=== PATIENT | male | born 1930 | race Caucasian/White ===

== ENCOUNTER 2016-07-08 15:15 | Inpatient (IN) | payer MEDICARE, OTHER ==
[~2016-07-08] VITALS: Ht 172.7 cm; Wt 63.1 kg
[~2016-07-08 15:15] MED LIST: AMLO5TAB90 PO; BISA10EN RECTAL; CALC500T9 PO; CICL6.6S5 TOPICAL; DONE10TA42 PO; GLPZ5T1 PO; HYDR-4003 PO; IMO2 PO; LACT1CAP67 PO; LISI10TA PO; MAG355OR31 PO; MELA3TAB35 PO; METO25T PO; MOM PO; MULT-1018 PO; NICO4GUM7 PO; PROP10DR5 BOTH_EYES; QUET25TA73 PO; TYL325 PO; WARF5TAB7 PO; WARF7.5T4 PO; WHEA98PO PO; [UNRECOGNIZED DRUG - OTHER] TOPICAL; calms forte PO
[2016-07-08 15:18] VITALS: BP 155/63; PULSE 54; RESP 16; O2SAT 97
[2016-07-08] MEDS ORDERED: HYDROmorphone 0.5 mg/0.5 mL iSecure Syringe IVPUSH PRN (15:40)
[2016-07-08] MEDS ORDERED: Ondansetron 2 mg/mL 2 mL Inj IVPUSH ONE (15:40)
--- NOTE | 2016-07-08 15:41 | ED.REPORT ---
HPI-Hip/Pelvis Prob/Inj Date of Service Jul 08, 2016 ED Provider: Charly Reyez MD This is an 85 year old male with a history of DM type II, CVA, HTN, hyperlipidemia, a-fib on Coumadin, CAD, JULES, and osteoarthritis presenting to the emergency department due to left hip pain that began 3 weeks ago. Pt had a hip CT scheduled today and was found to have L femoral head fracture head and consequently sent to the ED. In the ED, pt reports pain but denies numbness or tingling. He states that he may have fallen in the last few days. Denies any other trauma or injuries. Nursing Notes Stated Complaint: POSS BROKEN HIP Chief Complaint: Extremity Trauma Nursing Notes Reviewed: Yes (SAIC not reconciled - EMR indicates ho warfarin use, not on med list from pat[facility]) Allergies: Coded Allergies: metformin (Verified Allergy, Severe, lactic acidosis, 07/08/16) haloperidol (Verified Allergy, Unknown, 07/08/16) Scheduled Amlodipine (Amlodipine) 5 Mg Tablet 5 MG PO BID Aspirin (Aspirin) 325 Mg Tablet 325 MG PO DAILY Donepezil (Donepezil) 10 Mg Tablet 10 MG PO DAILY Glipizide ER (Glipizide ER) 2.5 Mg Tab.er.24 2.5 MG PO DAILY Ipratropium/Albuterol Sulfate (Iprat-Albut 0.5-3(2.5) mg/3 mL Inhalant Soln) 3 Ml Ampul.neb 3 ML IH TID Lact Cmb2/S.thermophl/Bif Cmb1 (Vsl#3 Packet) 1 Each Packet 1 EACH PO DAILY Lidocaine (Lidoderm) 700 Mg Adh..patch 1 PATCH TP daily,[id number] 12 Lisinopril (Lisinopril) 10 Mg Tablet 10 MG PO DAILY Melatonin/Pyridoxine (Melatonin 3 mg Tablet) 1 Each Tablet 1 EACH PO HS Metoprolol Tartrate (Metoprolol Tartrate) 25 Mg Tablet 25 MG PO TID Mirtazapine (Mirtazapine) 30 Mg Tablet 30 MG PO HS Nicotine (Nicoderm Cq 21 mg/24 hr) 1 Each Patch.td24 1 EACH TD DAILY Scheduled PRN Acetaminophen (Acetaminophen) 325 Mg Tablet 325-650 MG PO Q4H PRN PRN For Pain Bisacodyl (Dulcolax Rectal) 10 Mg Supp.rect 10 MG RC DAILY PRN PRN For Constipation Hydrocodone-Acetaminophen 5-325 mg (Hydrocodone-Acetaminophen 5-325 mg) 1 Each Tablet 1 TABLET PO Q4H PRN PRN For Pain Magnesium Hydroxide (Milk of Magnesia) 400 Mg/5 Ml Oral.susp 30 ML PO DAILY PRN PRN For Constipation Na Phos,M-B/Na Phos,Di-Ba (Fleet Enema) 133 Ml Enema 133 ML RC DAILY PRN PRN For Constipation Sennosides (Senna) 8.6 Mg Tablet 17.2 MG PO HS PRN PRN For Constipation General Time Seen by Provider: 16:34 Chief Complaint Hip injury left Hx Obtained From: Patient Arrived By: Walk-in Onset Occurred: More than a week ago... (3 weeks) Symptom Duration: Since onset Severity: Current: Moderate Pertinent Negative: Pt denies other symptoms Recent Healthcare: No recent hospitalization, Recent doctor visit Similar Sx Previous: No Past Medical History Past Medical History Notes: Recent hospitalization for pneumonia at [facility] Past Medical History 1. Diabetes mellitus, type 2. 2. 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 3. Hypertension. 4. Hyperlipidemia. 5. Intermittent A. fib. 6. Coumadin anticoagulation secondary to A. fib, started in 11/17 7. Coronary artery disease, with history of [place] in 1993 and NSTEMI in 11/17. 8. Acute renal failure in 11/17, resolved. 9. Hypertensive crisis with TIA 04/18. 10. B. cell lymphoma, diagnosed 06/15, finished 4 cycles of Rituxan 11. Obstructive sleep apnea, non-compliant with CPAP. 12. Osteoarthritis, spine. 13. History of psoriasis, previously on Barb. 14. Iron deficiency anemia, chronic. 15. Bladder diverticulum with hematuria, s/p surgical repair. 16. BPH. 17. Vertebral artery stenosis, left. 18. Internal carotid artery stenosis. US 11/17 : 50-75% LICA, 50% NATALEE 19. Colon polyps. History of dementia history to sleep apnea Past Surgical History TURP PEG tube Smoking History Never Smoker Social History Resides at [facility] Alcohol Use: Denies alcohol use Drug Use: Denies drug use Ambulatory Status Independent Review of Systems Constitutional: Denies: Chills, Fever Musculoskeletal: Reports: Joint pain, Denies: Back pain Skin: Denies Bruising Neurologic: Denies: Change LOC, Headache Complete sys rev & neg: except as marked. Physical Exam Initial Vital Signs Vital Signs (First) Date Time Temp Pulse Resp B/P Pulse Ox O2 Delivery O2 Flow Rate FiO2 07/08/16 15:18 36.7 54 16 155/63 97 Room Air Initial VS: Reviewed, Vital signs normal General/Constitutional: Well-developed, Well-nourished Head / Eyes: Atraumatic, Normocephalic, PERRL ENT: Mucous membranes moist, Conjunctiva normal, No scleral icterus Neck: Supple, Non-tender, Full range of motion Respiratory: Breath sounds normal, Clear to auscultation, No respiratory distress Cardiovascular: Regular rate & rhythm, Heart sounds normal, Intact distal pulses Abdomen / GI: Soft, Non-tender, No guarding, No rebound, No distention Upper Extremities: Vascular intact, Neuro intact, No swelling, No tenderness Skin: Warm, Dry, No cyanosis Neurologic: Alert, Oriented, Nonfocal Psychiatric: Mood/affect normal, Behavior normal, Normal thought content Lower Extremity / Pelvis / MS: Neurologic intact, Vascular intact Left Hip: Positive: ROM reduced..., Tenderness present... Interpretation & Diagnostics Interpretation & Diagnostics: IMPRESSION: 1. Persistent small right pleural effusion with right basilar compressive atelectasis or consolidation. 2. Mild pulmonary edema again noted. 3. Left midlung nodular opacity may represent confluence of vascular and bony structures but attention is recommended on followup. Dictated by: Rusty Gil M.D. on 07/08/2016 at 15:54 Approved by: Rusty Gil M.D. on 07/08/2016 at 15:56 CHEST X-RAY IMPRESSION: 1. Preoperative chest is of concern for apparent airspace disease in the left lower lobe associated with small pleural effusion developing since recent prior study. Findings could represent aspiration/pneumonia. Dictated by: Benjamin Alcala M.D. on 07/08/2016 at 16:18 Approved by: Benjamin Alcala M.D. on 07/08/2016 at 16:[address] IMPRESSION: Subacute fracture left femoral neck. Possible left obturator ring fracture, nondisplaced. Note: Findings called to Dr. Mango Murray at 1445 hrs. on 07/08/2016. Patient transferred to the ED by shadi at his request. Dictated by: Benjamin Alcala M.D. on 07/08/2016 at 14:38 Approved by: Benjamin Alcala M.D. on 07/08/2016 at 14:55 Lab Results Interpretation Result Diagram: 07/08/16 1715 07/08/16 1715 Test 07/08/16 16:37 07/08/16 16:46 07/08/16 17:15 Hold Urine Received (Received) Urine Color Yellow (YELLOW) Urine Appearance Clear (CLEAR,HAZY) Urine pH 6.5 (5.0-8.0) Urine Specific [place] 1.020 (1.003-1.035) Urine Protein Negativemg/dL (NEG,TRACE) Urine Glucose (UA) Negativemg/dL (NEGATIVE) Urine Ketones Negativemg/dL (NEGATIVE) Urine Occult Blood Negative (NEGATIVE) Urine Nitrite Negative (NEGATIVE) Urine Bilirubin Negative (NEGATIVE) Urine Urobilinogen Normalmg/dL (NORMAL) Urine Leukocyte Esterase Trace (NEGATIVE) Urine RBC 0-2/hpf (0-2) Urine WBC 6-10/hpf (0-5) Urine Epithelial Cells Few/hpf (NONE-MOD) Urine Crystals Uric acid crystals (NONE Urine Bacteria None/hpf (NONE-FEW) Urine Hyaline Casts None/lpf (NONE) Urine Granular Casts None seen (NONE SEEN) Urine Waxy Casts None seen (NONE SEEN) Urine Red Blood Cell Casts None seen (NONE SEEN) Urine White Blood Cell Casts None seen (NONE SEEN) Urine Mucus None seen (None Seen) Urine Trichomonas None seen (NONE SEEN) Urine Yeast None (NONE SEEN) Urinalysis Comment None Urine Culture Reflexed Indicated White Blood Count 5.4th/mm3 (3.8-10.1) Red Blood Count 4.04mil/mm3 (4.40-5.80) Hemoglobin 11.6g/dL (13.8-17.2) Hematocrit 38.6% (41.0-50.0) Mean Corpuscular Volume 95.5fL (81-100) Mean Corpuscular Hemoglobin 28.7pg (27.0-35.0) Mean Corpuscular Hemoglobin Concent 30.1% (32.0-37.0) Red Cell Distribution Width 17.1% (12.3-15.4) Platelet Count 119bil/L (150-400) Neutrophils (%) (Auto) 43.4% (40-74) Lymphocytes (%) (Auto) 48.3% (14-46) Monocytes (%) (Auto) 5.5% (4-12) Eosinophils (%) (Auto) 2.4% (0-5) Basophils (%) (Auto) 0.4% (0-3) Prothrombin Time 10.9sec (8.1-12.5) Prothromb Time International Ratio 1.02ratio Sodium Level 141mEq/L (134-144) Potassium Level 4.1mEq/L (3.5-5.2) Chloride Level 100mEq/L (97-108) Carbon Dioxide Level 29mmol/L (18-29) Blood Urea Nitrogen 20mg/dL (8-27) Creatinine 0.71mg/dL (0.76-1.27) Estimat Glomerular Filtration Rate 112mL/min (>59) Glucose Level 99mg/dL (60-99) Calcium Level 9.5mg/dL (8.5-10.1) Total Bilirubin 0.3mg/dL (0.0-1.2) Aspartate Amino Transf (AST/SGOT) 16U/L (0-50) Alanine Aminotransferase (ALT/SGPT) 9U/L (0-44) Alkaline Phosphatase 70U/L (25-160) Total Protein 6.9g/dL (6.4-8.4) Albumin 3.5g/dL (3.4-5.0) Lab Results Interpretation: CBC normal CMP normal INR normal Urine sixth 10 white cells, culture pending-doubt UTI Re-Eval/Medical Decision Med Decision/Clinical Course This is an 85-year-old male dementia presents with left hip pain. Apparently the patient had a fall in early June and has had continuous left hip pain ever since, but has been a bleeding with the use of walker. However he has been getting hydrocodone, and this been an inadequate to control his left hip pain that has persisted. So he was set up for a outpatient noncontrast CT scan today from [facility] where he resides for evaluation of that left hip pain. Then last night he had a mild fall as well-and continues to have left hip pain. The patient's a poor historian. Denies striking his head, cannot provide much additional detail. On exam the patient has some soreness with decreased range of motion, but no kay shortening. No other injuries are appreciated on exam. Records indicate he has been on warfarin, family and [facility]cf indicate that that was discontinued a little over a week ago-so is off anticoagulants except aspirin. The CT imaging at today as an outpatient was positive for left hip fracture, so the patient was transferred over. History patient declined an IV or intervention-and we got a phone call from his daughter indicating she did not want anything done dishes interesting potential transfer to [place]. The nurse communicated there was a thought that the family may not be interested in surgical intervention. We waited for the family to arrive. Ultimately the patient did receive an IM dose of pain medicine as he is having some discomfort, and then agreed finally to an IV which was placed. However, when the daughter arrived and I discussed the situation-they were comfortable with being admitted here, I discussed with the orthopedist the imaging was the possibility of nonoperative management understanding of marked decrease in mobility-the family indicates that she is normally up and a monitor and a walker, and therefore like an orthopedic consultation for the possibility of surgery-and in the in the surgery was able to discuss with the family directly over the phone to answer questions. She does be admitted for continued management. He should be nothing by mouth after midnight. The case discussed the hospitalist. Source of Hx: Old records Consultation #1: Referral / Consult Name: Jay Metzger DO Consulted With: Orthopedic Call Returned at: 16:41 Note: Will review imaging Consultation #2: Referral / Consult Name: Jillian Alex MD Call Returned at: 18:29 Air Crew Officer: Accepts admit Differential Diagnosis: Negative: Arthritis, septic, Bite injury, Burn injury, Compartment syndrome, Fx acetabulum, Laceration Counseled Regarding: Diagnosis, Lab results, Need for follow-up, Need for admission Discharge & Departure Impression: Primary Impression: Hip fracture, left Encounter type: initial encounter Fracture type: closed Qualified Code: S72.002A - Fracture of unspecified part of neck of left femur, initial encounter for closed fracture Disposition: ADMITTED TO HOSPITAL Discharge Condition All VS Reviewed: Yes Condition: Stable Referrals: Jaycob Peterson MD (PCP) Scribe Attestation Portions of this note were transcribed by Adryan Marcos. I, Dr. Reyez personally performed the history, physical exam and medical decision-making; I reviewed and confirmed the accuracy of the information in the transcribed note. Signed by: jerry Flynn. 07/08/2016, 23:30. Charly Reyez MD Jul 08, 2016 15:41 ADRYAN MARCOS Jul 08, 2016 15:44
[2016-07-08] MEDS ORDERED: Lidocaine 2% 5 mL Topical Jelly MUC_MEMBRM ONE (15:45)
[2016-07-08] MEDS ORDERED: Lidocaine 2% 6mL Topical Jelly TOPICAL ONE (15:50)
--- NOTE | 2016-07-08 16:22 | DRSVH ---
PROCEDURE: X-RAY CHEST ONE VIEW, PORTABLE ([id number]) INDICATIONS: preop TECHNIQUE: One view of the chest was acquired. COMPARISON: 05/31/2016 FINDINGS: Surgical changes and devices: None. Lungs and pleura: There is a moderate left pleural effusion with overlying atelectasis. Patchy airspa ce disease is present at the left base over the fourth anterior rib. The right lung field is clear. N o pneumothorax. Mediastinum: Mediastinal contours appear normal. Heart size is normal. Atheromatous aorta. Bones and chest wall: No suspicious bony lesions. Overlying soft tissues appear unremarkable. IMPRESSION: 1. Preoperative chest is of concern for apparent airspace disease in the left lower lobe associated w ith small pleural effusion developing since recent prior study. Findings could represent aspiration/p neumonia. Dictated by: Benjamin Alcala M.D. on 07/08/2016 at 16:18 Approved by: Benjamin Alcala M.D. on 07/08/2016 at 16:21
[2016-07-08] MEDS ORDERED: HYDROmorphone 1 mg/mL Inj IM ONE (16:40)
[2016-07-08] MEDS ORDERED: Ondansetron 8 mg ODT Tablet PO ONE (16:40)
[2016-07-08 17:20] LABS: APPEARANCE,URINE CLEAR (CLEAR,HAZY); COLOR,URINE YELLOW (YELLOW); OCCULT BLOOD,URINE NEGATIVE (NEGATIVE); PH,URINE 6.5 (5.0-8.0); UROBILINOGEN,URINE NORMAL (NORMAL)
[2016-07-08 17:27] LABS: BASOPHILS % (AUTO) 0.4 % (0-3); EOSINOPHILS % (AUTO) 2.4 % (0-5); MONOCYTES % (AUTO) 5.5 % (4-12); Mean Corpuscular Hemoglobin 28.7 pg (27.0-35.0); Mean Corpuscular Volume 95.5 fL (81-100); NEUTROPHILS % (AUTO) 43.4 % (40-74); Platelet Count 119 bil/L (150-400)
[2016-07-08 17:46] LABS: INR 1.02 ratio
[2016-07-08] MEDS ORDERED: HYDROmorphone 2 mg/mL Inj IVPUSH PRN (19:00)
[2016-07-08 19:06] VITALS: PULSE 52
[2016-07-08] MEDS ORDERED: METO25TA6 PO (19:11)
[2016-07-08] MEDS ORDERED: MAGN400O4 PO (19:11)
[2016-07-08] MEDS ORDERED: SENN-133 PO (19:11)
[2016-07-08] MEDS ORDERED: MIRT30TA6 PO (19:11)
[2016-07-08] MEDS ORDERED: GLIP2.5T2 PO (19:11)
[2016-07-08] MEDS ORDERED: NA P133E23 RC (19:11)
[2016-07-08] MEDS ORDERED: MELA1TAB11 PO (19:11)
[2016-07-08] MEDS ORDERED: DONE10TA42 PO (19:11)
[2016-07-08] MEDS ORDERED: BISA10SU61 RC (19:11)
[2016-07-08] MEDS ORDERED: AMLO5TAB2 PO (19:11)
[2016-07-08] MEDS ORDERED: ACET325T51 PO (19:11)
[2016-07-08] MEDS ORDERED: [UNRECOGNIZED DRUG - CODE] PO (19:11)
[2016-07-08] MEDS ORDERED: NICO1PAT35 TD (19:11)
[2016-07-08] MEDS ORDERED: ASPI325T32 PO (19:11)
[2016-07-08] MEDS ORDERED: LIDO700A6 TP (19:11)
[2016-07-08] MEDS ORDERED: IPRA3AMP IH (19:11)
[2016-07-08 19:15] VITALS: BP 153/52; PULSE 60; RESP 16; O2SAT 93
[2016-07-08] MEDS: HYDROmorphone 1 mg/mL Inj IVPUSH PRN (19:28)
--- NOTE | 2016-07-08 19:49 | PCM.HPMED ---
Subjective Date of Service Jul 08, 2016 Primary Provider: Admitting Physician: Jillian Alex MD Primary Care Physician: Jaycob Peterson MD Attending Physician: Jillian Alex MD History of Present Illness: 85-year-old malen with history of DM type II, CVA, HTN, hyperlipidemia, a-fib on Coumadin, CAD, JULES, and osteoarthritis p/w hip pain. Pt stated that he fell 3 weeks ago in the bathroom, slipped and fell backwards, since the he started having lt hip pain, but CXR was negative for fracture. Patient fel 2days ago again when his WC gave out when he was trying to sit, fell backward again. denied head trauma, LOC, pain in other body parts. Pt was brought in today for scheduled CT scan. then with positive CT findings with L femoral head fracture head, pt was brought to ED. In ED, VS stable, [id number], tg to 52-54, afebrile, >95% on RA. Received multiple dilaudid, zofran. During the interview in [facility], pt denied pain, looked comfortable, ROS: pt denied fever, chills, n/v/c/d, no PND/orthopnea, Prior to this episode, used to walk 5-6blocks without assistance, didn't experience CP or SOB with movement. pt stated that he had mild heart attack several years ago, but since then, hasn't had any chest pain, currently denied active chest pain, sob. denied leg swelling, wt gain, increase in abdominal girdle. 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 Review of Systems: Pertinent positives as noted in history of present illness. All other systems were reviewed and are negative Allergies Coded Allergies: metformin (Verified Allergy, Severe, lactic acidosis, 07/08/16) haloperidol (Verified Allergy, Unknown, 07/08/16) Home Medications Scheduled Amlodipine (Amlodipine) 5 Mg Tablet 5 MG PO BID Aspirin (Aspirin) 325 Mg Tablet 325 MG PO DAILY Donepezil (Donepezil) 10 Mg Tablet 10 MG PO DAILY Glipizide ER (Glipizide ER) 2.5 Mg Tab.er.24 2.5 MG PO DAILY Ipratropium/Albuterol Sulfate (Iprat-Albut 0.5-3(2.5) mg/3 mL Inhalant Soln) 3 Ml Ampul.neb 3 ML IH TID Lact Cmb2/S.thermophl/Bif Cmb1 (Vsl#3 Packet) 1 Each Packet 1 EACH PO DAILY Lidocaine (Lidoderm) 700 Mg Adh..patch 1 PATCH TP daily,[id number] 12 Lisinopril (Lisinopril) 10 Mg Tablet 10 MG PO DAILY Melatonin/Pyridoxine (Melatonin 3 mg Tablet) 1 Each Tablet 1 EACH PO HS Metoprolol Tartrate (Metoprolol Tartrate) 25 Mg Tablet 25 MG PO TID Mirtazapine (Mirtazapine) 30 Mg Tablet 30 MG PO HS Nicotine (Nicoderm Cq 21 mg/24 hr) 1 Each Patch.td24 1 EACH TD DAILY Scheduled PRN Acetaminophen (Acetaminophen) 325 Mg Tablet 325-650 MG PO Q4H PRN PRN For Pain Bisacodyl (Dulcolax Rectal) 10 Mg Supp.rect 10 MG RC DAILY PRN PRN For Constipation Hydrocodone-Acetaminophen 5-325 mg (Hydrocodone-Acetaminophen 5-325 mg) 1 Each Tablet 1 TABLET PO Q4H PRN PRN For Pain Magnesium Hydroxide (Milk of Magnesia) 400 Mg/5 Ml Oral.susp 30 ML PO DAILY PRN PRN For Constipation Na Phos,M-B/Na Phos,Di-Ba (Fleet Enema) 133 Ml Enema 133 ML RC DAILY PRN PRN For Constipation Sennosides (Senna) 8.6 Mg Tablet 17.2 MG PO HS PRN PRN For Constipation PMH 1. Diabetes mellitus, type 2. 2. 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 3. Hypertension. 4. Hyperlipidemia. 5. Intermittent A. fib. 6. Coumadin anticoagulation secondary to A. fib, started in 11/17 7. Coronary artery disease, with history of [place] in 1993 and NSTEMI in 11/17. 8. Acute renal failure in 11/17, resolved. 9. Hypertensive crisis with TIA 04/18. 10. B. cell lymphoma, diagnosed 06/15, finished 4 cycles of Rituxan 11. Obstructive sleep apnea, non-compliant with CPAP. 12. Osteoarthritis, spine. 13. History of psoriasis, previously on Barb. 14. Iron deficiency anemia, chronic. 15. Bladder diverticulum with hematuria, s/p surgical repair. 16. BPH. 17. Vertebral artery stenosis, left. 18. Internal carotid artery stenosis. US 11/17 : 50-75% LICA, 50% NATALEE 19. Colon polyps. History of dementia history to sleep apnea Surgical History denied any surgery but "TURP", PEG per the record Social History Hx Alcohol Use: No Hx Substance Use: No Hx Tobacco Use: No Smoking Status: Never Smoker Exam Vital Signs Vital Sign - Last Date Time Temp Pulse Resp B/P Pulse Ox O2 Delivery O2 Flow Rate FiO2 07/08/16 19:06 52 07/08/16 18:53 36.7 16 145/68 97 Room Air Exam NAD, comfortably laying down on the bed no JVD, MMM, no LAD RRR, nl s1, s2 no mrg CTAB, no w,c S,ND,NT,normoactive BS+ warm, no edema, pulses 2/2 able to move toes, sensory intact to dull bilaterally Lab and Diagnostics Result Diagram: 07/08/16171407/08/16 1715 X-Rays, CTs and MRIs ROCEDURE: CT HIP LEFT W/O CONTRAST ([id number]) INDICATIONS: STABBING PAIN TO LEFT HIP TECHNIQUE: Noncontrast 3 mm axial sections acquired through the bony pelvis. Additional 3 mm axial sections acquired through the symptomatic hip joint, with coronal and sagittal reformats. COMPARISON: None. FINDINGS: Image quality: Excellent. Bones: Bones are osteoporotic. There is a subacute left femoral neck fracture with angulation and displacement deformity. There is mild cortical deformity in the medial aspect of the inferior ramus of the left ischium on axial imaging, series 2/image 64, suggesting nondisplaced obturator ring fracture. Soft tissues: Fat filled bilateral inguinal hernias. IMPRESSION: Subacute fracture left femoral neck. Possible left obturator ring fracture, nondisplaced. Note: Findings called to Dr. Mango Murray at 1445 hrs. on 07/08/2016. Patient transferred to the ED by shadi at his request. Dictated by: Benjamin Alcala M.D. on 07/08/2016 at 14:38 Approved by: Benjamin Alcala M.D. on 07/08/2016 at 14:55 Assessment & Plan 85-year-old malen with history of DM type II, CVA, HTN, hyperlipidemia, a-fib on Coumadin, CAD, JULES, and osteoarthritis p/w hip pain. acute, active Lt hip pain s/p fall, POA, CT of hip showed subacute subacute fracture left femoral neck. Possible left obturator ring fracture, nondisplaced. -appreciate orthopedics input surgery vs non-surgery, pt is interested in surgery, seems to have decisional capacity -pain control with dilaudid, -zofran for n/v Coronary artery disease, with history of [place] in 1993 and NSTEMI in 11/17, no active cardiac condition to postpone the surgery, -pre-op assessment-CXR showed mild pulmonary edema, but clinically pt seems euvolemic, maintain oxygenation w/o O2 supplement, no s/s of acute CHF, no active chest pain, EKG showed normal sinus, no high degree blocks. -will get TTE as well as no follow up for long time. However, unlikely require presurgical eval. Afib on coumadin, likely proxysmal, will check INR, hold coumadin today chronic, stable Diabetes mellitus, type 2, trends glc qac, target 140-180 CVA history 11/17 with right temporal and parietal , with residual visual field cut and memory deficits, pt talks slowly but AAOx3, HTN, HLD, will continue home BP meds, remote hx of JULES, Hypertensive crisis, not active B. 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 Osteoarthritis, spine. History of psoriasis, previously on Barb. Iron deficiency anemia, chronic. Bladder diverticulum with hematuria, s/p surgical repair. BPH. Vertebral artery stenosis, left. Internal carotid artery stenosis. US 11/17 : 50-75% LICA, 50% NATALEE Colon polyps. dispo:Patient will be admitted with inpatient status with expectation of inpatient therapy for more than 2 midnights diet:NPO after MN dvt ppx:SCD DNR/DNI, but okay for anesthesia for surgery addendum> patient was on aspirin, not Coumadin so it was held Time spent 35min Jillian Alex MD Jul 08, 2016 19:49
[2016-07-08 20:00] VITALS: PULSE 61
[2016-07-08] MEDS ORDERED: Sodium Biphos-Phos 133 mL Enema RECTAL PRN (20:00)
[2016-07-08] MEDS ORDERED: Magnesium Hydroxide 10 mL Oral Concentration PO PRN (20:15)
[2016-07-08] MEDS: Albuterol-Ipratropium 3 mL Inhalation Solution INHALATION SCH (20:30)
[2016-07-08 22:28] VITALS: BP 128/68; PULSE 44; RESP 16; O2SAT 96
[2016-07-09] VITALS (18 sets, daily range): BP systolic 112–161; BP diastolic 44–77; PULSE 53–88; RESP 12–20; O2SAT 94–100
--- NOTE | 2016-07-09 01:30 | NUR ---
admit pt arrived to [facility] room 1003 via stretcher. he was moved to hospital bed with sliding board. pt placed on tele monitor and FORENSIC STRUCTURAL ENGINEER. pt is A&Ox3 but is forgetful and has trouble recalling past events at times. admit was completed with pt interview and by using medical records from [facility]. pt oriented to call light, and bed controls but seems to have some difficulty remembering want button to push. nurse frequently reminding pt how to call for help and nica bed alarm is on. pt pulse has been down as low as 44 and has been staying below 50 well pt sleeps. pt amlodipine was held for bradycardia. dilaudid being given for pain control and pt denies pain after administration. pt resting comfortably at this time. care continues.
[2016-07-09 05:43] LABS: BASOPHILS % (AUTO) 0.2 % (0-3); EOSINOPHILS % (AUTO) 1.9 % (0-5); MONOCYTES % (AUTO) 5.8 % (4-12); Mean Corpuscular Hemoglobin 29.3 pg (27.0-35.0); Mean Corpuscular Volume 95.2 fL (81-100); NEUTROPHILS % (AUTO) 32.3 % (40-74); Platelet Count 102 bil/L (150-400)
[2016-07-09 06:02] LABS: INR 1.05 ratio
[2016-07-09 06:17] LABS: Magnesium 1.9 mg/dL (1.6-2.6); Phosphorus 4.1 mg/dL (2.5-4.9)
--- NOTE | 2016-07-09 10:58 | PCM.PNMED ---
Subjective Date of Service Jul 09, 2016 Subjective no overnight event pt denied pain, looked comfortable, still interested in surgery, tentatively scheduled at 2pm today bradycardic throughout, Exam Vital Signs Vital Sign - Last Date Time Temp Pulse Resp B/P Pulse Ox O2 Delivery O2 Flow Rate FiO2 07/09/16 10:16 56 07/09/16 08:44 36.7 17 152/77 96 Room Air Intake and Output 07/08/16 07/08/16 07/09/16 Cumulative From/Thru 15:00 23:00 07:00 07/08/16 15:18 - 07/09/16 05:07 Intake Total 350 ml 350 ml Output Total 250 ml 250 ml Balance 100 ml 100 ml Intake Oral 350 ml 350 ml Output Urine Total 250 ml 250 ml # Bowel Movements 0 0 Exam NAD, comfortably laying down on the bed no JVD, MMM, no LAD RRR, nl s1, s2 no mrg CTAB, no w,c S,ND,NT,normoactive BS+ warm, no edema, pulses 2/2 able to move toes, sensory intact to dull bilaterally IVs and Medications Medications Reviewed: Medications were reviewed in detail Lab and Diagnostics Result Diagram: 07/09/163 07/09/16 0443 X-Rays, CTs and MRIs ROCEDURE: CT HIP LEFT W/O CONTRAST (23707) INDICATIONS: STABBING PAIN TO LEFT HIP TECHNIQUE: Noncontrast 3 mm axial sections acquired through the bony pelvis. Additional 3 mm axial sections acquired through the symptomatic hip joint, with coronal and sagittal reformats. COMPARISON: None. FINDINGS: Image quality: Excellent. Bones: Bones are osteoporotic. There is a subacute left femoral neck fracture with angulation and displacement deformity. There is mild cortical deformity in the medial aspect of the inferior ramus of the left ischium on axial imaging, series 2/image 64, suggesting nondisplaced obturator ring fracture. Soft tissues: Fat filled bilateral inguinal hernias. IMPRESSION: Subacute fracture left femoral neck. Possible left obturator ring fracture, nondisplaced. Note: Findings called to Dr. Mango Murray at 1445 hrs. on 07/08/2016. Patient transferred to the ED by shadi at his request. Dictated by: Benjamin Alcala M.D. on 07/08/2016 at 14:38 Approved by: Benjamin Alcala M.D. on 07/08/2016 at 14:55 Assessment & Plan 85-year-old malen with history of DM type II, CVA, HTN, hyperlipidemia, a-fib on Coumadin, CAD, JULES, and osteoarthritis p/w hip pain. acute, active Lt hip pain s/p fall, POA, CT of hip showed subacute subacute fracture left femoral neck. Possible left obturator ring fracture, nondisplaced. -appreciate orthopedics input, tentatively scheduled for surgery today -pain control with dilaudid, -zofran for n/v -post op pain/dvt ppx management per surgery team. Coronary artery disease, with history of [place] in 1993 and NSTEMI in 11/17, no active cardiac condition to postpone the surgery, -pre-op assessment-CXR showed mild pulmonary edema, but clinically pt seems euvolemic, maintain oxygenation w/o O2 supplement, no s/s of acute CHF, no active chest pain, EKG showed normal sinus, no high degree blocks. -await TTE given no follow up for long time. pt remained clinically stable. Afib, likely proxysmal, INR in normal range, pt is not Coumadin, held aspirin. 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 Osteoarthritis, spine. History of psoriasis, previously on Barb. Iron deficiency anemia, chronic. Bladder diverticulum with hematuria, s/p surgical repair. BPH. Vertebral artery stenosis, left. Internal carotid artery stenosis. US 11/17 : 50-75% LICA, 50% NATALEE Colon polyps. dispo:likely 3more days postop diet:NPO now, resume cardiac/diabetic post surgery dvt ppx:SCD DNR/DNI, but okay for anesthesia for surgery Time spent 35min Jillian Alex MD Jul 09, 2016 10:54
[2016-07-09] MEDS: HYDROmorphone 1 mg/mL Inj IVPUSH PRN (11:00)
[2016-07-09] MEDS: Lidocaine Topical 5% Patch TOPICAL SCH (11:01)
[2016-07-09] MEDS: Dextrose 5% 0.45% NaCl 1,000 ML IV SCH ×2 (11:20→23:51)
[2016-07-09] MEDS ORDERED: CeFAZolin Inj 2 GM in IV Premix 1 EACH IV SCH (12:00)
--- NOTE | 2016-07-09 12:04 | NUR ---
Case Management: IMM and Medicare Part D form delivered and explained to patient. Original placed in chart and copy left at bedside. Theresa Vera RN
[2016-07-09] MEDS ORDERED: Phenylephrine/NS 100 mCg/mL 10 mL Syringe IVPUSH ONE (12:25)
[2016-07-09] MEDS ORDERED: Propofol 10,000 mCg/mL 20 mL Inj ONE (12:25)
[2016-07-09] MEDS ORDERED: fentaNYL-PF 50 mCg/mL 2 mL Inj ONE (12:25)
[2016-07-09] MEDS ORDERED: Rocuronium 10 mg/mL 5 mL Inj ONE (12:25)
--- NOTE | 2016-07-09 15:04 | NUR ---
Off Unit Pt off unit to OR at 1500. A&O, IV SL, Pain tolerable, BG 96, Tele made aware that pt off unit. Remains bradycardic at 55s. Report given to January Fuller RN prior to pickup. Call to Heydi HINTON and requested she return to sign consent for anesthesia. Consent signed for surgery. Pt left unit via bed with chart. Addendum: 07/09/16 at 191 by SHELIA BAIN RN received PACU report at ~1830 from EVAN Zuñiga. This report was passed on to Shelbi ayon RN.
--- NOTE | 2016-07-09 15:16 | PCM.HPANE ---
Patient Data Surgeon Admitting Provider:Jillian Alex MD Attending Provider:Jillian Alex MD Primary Care Physician:Jaycob Peterson MD Other Provider: Reason for Visit Hip Fracture HIP FRACTURE Ht/WT & BMI Height (Feet): 5 Height (Inches): 8.00 Weight (Kilograms): 63.100 Body Mass Index 21.08 Allergies Coded Allergies: metformin (Verified Allergy, Severe, lactic acidosis, 07/08/16) haloperidol (Verified Allergy, Unknown, 07/08/16) Past Anesthesia History Anesthesia History: Denies:: Anesthesia Reactions Diabetes History Hx Diabetes?: Yes (on oral meds) Current Bedside Blood Glucose: 105 MRSA MRSA: No Medications Hypertension Medication: No Home Meds Incl Beta Anderson: No Active Scripts Hydrocodone-Acetaminophen 5-325 mg 1 Each Tablet1 Tablet PO Q4H PRN For Pain # 14 TABLET Ref 0 Prov:Ahmet Powell DO 09/16/15 Reported Medications Acetaminophen 325 Mg Yeptqb406-140 Mg PO Q4H PRN For Pain Ref 0 07/08/16 Sennosides (Senna)8.6 Mg Ttpbbj14.2 Mg PO HS PRN For Constipation 07/08/16 Nicotine (Nicoderm Cq 21 mg/24 hr)1 Each Patch.td241 Each TD DAILY #14 PATCH Ref 0 07/08/16 Na Phos,M-B/Na Phos,Di-Ba (Fleet Enema)133 Ml Gknvm963 Ml RC DAILY PRN For Constipation 07/08/16 Bisacodyl (Dulcolax Rectal)10 Mg Supp.rect10 Mg RC DAILY PRN For Constipation 30 Days Ref 0 07/08/16 Magnesium Hydroxide (Milk of Magnesia)400 Mg/5 Ml Oral.susp30 Ml PO DAILY PRN For Constipation 07/08/16 Metoprolol Tartrate 25 Mg Httjnl61 Mg PO TID 30 Days Ref 0 07/08/16 Ipratropium/Albuterol Sulfate (Iprat-Albut 0.5-3(2.5) mg/3 mL Inhalant Soln)3 Ml Ampul.neb3 Ml IH TID Ref 0 07/08/16 Amlodipine 5 Mg Tablet5 Mg PO BID Ref 0 07/08/16 Lact Cmb2/S.thermophl/Bif Cmb1 (Vsl#3 Packet)1 Each Packet1 Each PO DAILY 07/08/16 Mirtazapine 30 Mg Xqswrk44 Mg PO HS Ref 0 07/08/16 Melatonin/Pyridoxine (Melatonin 3 mg Tablet)1 Each Tablet1 Each PO HS 07/08/16 Lidocaine (Lidoderm)700 Mg Adh..patch1 Patch TP daily,wb92olj/off 12 Ref 0 07/08/16 Glipizide ER 2.5 Mg Tab.er.242.5 Mg PO DAILY 07/08/16 Donepezil 10 Mg Iyifcc83 Mg PO DAILY Ref 0 07/08/16 Aspirin 325 Mg Ngojfi566 Mg PO DAILY #1 BOTTLE 07/08/16 Lisinopril 10 Mg Pchqhn92 Mg PO DAILY 30 Days Ref 0 09/16/15 Discontinued Reported Medications [sarna sens 1% lotion] No Conflict Check1 Applic TOPICAL DAILY 09/16/15 Nicotine Polacrilex (Nicorette)4 Mg Gum4 Mg PO PRN PRN For Tobacco Withdrawal Ref 0 09/16/15 Calcium Carbonate (Tums)500 Mg Tab.chew1,000 Mg PO QID PRN For Epigastric Distress 30 Days 09/16/15 Bisacodyl (Bisacodyl Rectal)10 Mg/30 Ml Enema1 Supp RECTAL PRN PRN For Constipation 09/16/15 Mag Hydrox/Al Hydrox/Simeth (Antacid M Liquid)355 Ml Oral.susp10 Ml PO ACHS PRN For Dyspepsia or Heartburn 09/16/15 Propylene Glycol/Peg 400 (Systane Gel Eye Drops)10 Ml Drops.gel1 Gtt BOTH_EYES QID 09/16/15 Quetiapine Fumarate 25 Mg Lqrrzs63 Mg PO HS Ref 0 09/16/15 Lactobacillus Combination No.4 (Probiotic)1 Each Capsule2 Each PO DAILY 09/16/15 Multivitamin (Multi Vitamin Daily)1 Each Tablet1 Each PO DAILY 30 Days Ref 0 09/16/15 Melatonin 3 Mg Tablet3 Mg PO HS 09/16/15 Donepezil 10 Mg Wmmcgz51 Mg PO BID Ref 0 09/16/15 Ciclopirox 6.6 Ml Solution1 Applic TOPICAL HS 09/16/15 [calms forte] No Conflict Check1-2 Tablet PO HS 09/16/15 Wheat Dextrin (Benefiber)1 Each Powd.pack1 Each PO DAILY 09/16/15 Warfarin Sodium 5 Mg Tfxgnk39 Mg PO DIRECTED 30 Days Ref 0 Take once a week on Friday only. 09/16/15 Warfarin Sodium Inactive Drug Do Not Use 7.5 Mg Tablet7.5 Mg PO DAILY FRI/FRI/FRI/FRI/FRI/SAT 03/09/13 Milk Of Magnesia 10 Ml Conc30 Ml PO DAILY NEED FOR COMPLANTS OF CONSTIPATION IF NO BM, CONTACT PHYSICIAN FOR FURTHER ORDERS. 03/09/13 Loperamide-Expunged Drug, Do Not Renew! (Imodium-Expunged Drug, Do Not Renew!)2 Mg Tablet2 Tab PO TAKE 2 TABLETS BY MOUTH AFTER 1ST LOOSE STOOL, THEN 1 TAB WITH EACH SUBSEQUENT LOOSE STOOL TO A MAXIMUM OF 8 TABS/24HRS.IF DIARRHEA IS NOT RESOLVED IN 48HRS, NOTIFY PHYSICAN. 03/09/13 Acetaminphen-Expunged Drug, Do Not Renew! 325 Mg Tablet2 Tab PO Q4 PRN For Pain NEEDED NOT TO EXCEED 3GM\24HR. 03/09/13 Metoprolol Tart-Expunged Drug, Do Not Renew! 25 Mg Nwwuau81 Mg PO BID 03/09/13 AmLODIPine-Expunged Drug, Do Not Renew! 5 Mg Tablet5 Mg PO BID INCREASED DOSE FOR BETTER BLOOD PRESSURE CONTROL. 03/09/13 Discontinued Scripts glipiZIDE-Expunged Drug, Do Not Renew! 5 Mg Tablet2.5 Mg PO BIDAC 30 Days FOR DIABETES/BETTER BLOOD GLUCOSE CONTROL Prov:Martin Ortega DO 03/12/13 History History of ENT Problems?: Yes HEENT History: Positive for:: Cataracts Hx of Heart Problems?: Yes Cardiovascular History: Positive for:: Hypertension Irregular Heartbeat (afib) Hx of Respiratory Problem?: Yes Respiratory History: Positive for:: Pneumonia Hx Neurologic Problems?: Yes Neurological History: Positive for:: CVA (11/17, TIA 04/18, visual feild, spatial and memory impaired) Dementia (post stroke) Hx of GI Problems?: No Hx of Problems?: Yes Other Pertinent History: bladder diverticulum with hematuria, surgically repaired Male Hx: Positive for:: Prostate Problems (BPH) Hx Musculoskeletal Problems?: Yes Musculoskeletal History: Positive for:: Back Injury (osteoarthritis) Hx of Psycho/Social Problems?: No Hx Surgeries?: Yes (bladder, ) Hx Any Other Health Problems?: Yes Other History: Positive for:: Cancer (B cell lymphoma 06/15) Hospitalization (vt) History Blood Transfusions: Positive for:: Accept Blood Products? Denies:: Blood Transfusions (unknown, pt says no but is not sure, memory deficits) Hx Diabetes: Yes (on oral meds)Bedside Blood Glucose: 105 Hx Alcohol Use: NoHx Substance Use: No Smoking Status: Never Smoker Have You Smoked inLast 12 mo: Yes (has nicotine patch on) Stop/Bang Treated for Sleep Apnea?: No (known sleep apnea non compliant with care) Do You Have a CPAP Machine?: No S-Snoring: Do You Snore Loudly: No T-Tired: feel tired, fatigued: Yes O-Obsered: Observed not breath: Yes P-Blood Pressure: treated: Yes B- Body Mass Index > 35 kg/m2: No A- Age over 50: Yes N- Neck Large Circumference: No G- Gender Male: Yes COLE Total Score: 4 COLE Risk Assessment: High Risk, =/>3 Yes COLE Category 2: Yes Risk Assessment Category Category 1A: Patient has history of documented sleep apnea, and HAS NOT received any narcotic, sedative or anesthesia administration during this stay. Category 1B: Patient has history of documented sleep apnea, and HAS received any narcotic , sedative or anesthesia administration during this stay Category 2: Patient has SUSPECTED Obstructive Sleep Apnea, and HAS received any narcotic , sedative or anesthesia administration during this stay. Category 3: Patient has SUSPECTED Obstructive Sleep Apnea and HAS NOT received narcotic, sedative or anesthesia administration during this stay. Category 4: Outpatient in Procedural Areas with known sleep apnea or who screen positive for High Risk via the STOP/BANG questionnaire. Exam Exam Vital Signs Vital Signs Date Time Temp Pulse Resp B/P Pulse Ox O2 Delivery O2 Flow Rate FiO2 07/09/16 11:59 36.6 53 16 147/62 97 Room Air 07/09/16 10:16 56 07/09/16 08:44 36.7 59 17 152/77 96 Room Air General Appearance: Oriented X3 HEENT/AIRWAY: MP 2 Lungs: Normal Air Movement Heart: Regular Rate/Rhythm Meds/Labs/Diagnostics Admission Meds Current Medications Ondansetron HCl (Zofran Inj) 4 mg ONCE ONCE IVPUSH Last administered on t 17:22; Start 07/08/16 at 15:40; Stop 07/08/16 at 15:41; Status DC Lidocaine HCl (Glydo) 6 ml ONCE ONCE TOPICAL Last administered on 07/08/16 18: 32; Start 07/08/16 at 15:50; Stop 07/08/16 at 15:51; Status DC Lidocaine (Lidoderm 5% Patch) 1 patch DAILY TOPICAL Last administered on 11:01; Start 07/09/16 at 08:30 Lisinopril (Zestril) 10 mg DAILY PO Last administered on 07/09/16 11:13; Start 07/09/16 at 08:30 Donepezil HCl (Aricept) 10 mg DAILY PO Last administered on 07/09/16 11:13; Start 07/09/16 at 08:30 Mirtazapine (Remeron) 30 mg HS PO Last administered on 07/08/16 22:21; Start at 21:00 Bedside Blood Glucose: 105 Labs Test 07/08/16 16:37 07/08/16 16:46 07/09/16 04:43 Hold Urine Received (Received) Urine Color Yellow (YELLOW) Urine Appearance Clear (CLEAR,HAZY) Urine pH 6.5 (5.0-8.0) Urine Specific Mineral 1.020 (1.003-1.035) Urine Protein Negativemg/dL (NEG,TRACE) Urine Glucose (UA) Negativemg/dL (NEGATIVE) Urine Ketones Negativemg/dL (NEGATIVE) Urine Occult Blood Negative (NEGATIVE) Urine Nitrite Negative (NEGATIVE) Urine Bilirubin Negative (NEGATIVE) Urine Urobilinogen Normalmg/dL (NORMAL) Urine Leukocyte Esterase Trace (NEGATIVE) Urine RBC 0-2/hpf (0-2) Urine WBC 6-10/hpf (0-5) Urine Epithelial Cells Few/hpf (NONE-MOD) Urine Crystals Uric acid crystals (NONE Urine Bacteria None/hpf (NONE-FEW) Urine Hyaline Casts None/lpf (NONE) Urine Granular Casts None seen (NONE SEEN) Urine Waxy Casts None seen (NONE SEEN) Urine Red Blood Cell Casts None seen (NONE SEEN) Urine White Blood Cell Casts None seen (NONE SEEN) Urine Mucus None seen (None Seen) Urine Trichomonas None seen (NONE SEEN) Urine Yeast None (NONE SEEN) Urinalysis Comment None Urine Culture Reflexed Indicated White Blood Count 4.7th/mm3 (3.8-10.1) Red Blood Count 3.35mil/mm3 (4.40-5.80) Hemoglobin 9.8g/dL (13.8-17.2) Hematocrit 31.9% (41.0-50.0) Mean Corpuscular Volume 95.2fL (81-100) Mean Corpuscular Hemoglobin 29.3pg (27.0-35.0) Mean Corpuscular Hemoglobin Concent 30.7% (32.0-37.0) Red Cell Distribution Width 16.9% (12.3-15.4) Platelet Count 102bil/L (150-400) Neutrophils (%) (Auto) 32.3% (40-74) Lymphocytes (%) (Auto) 59.6% (14-46) Monocytes (%) (Auto) 5.8% (4-12) Eosinophils (%) (Auto) 1.9% (0-5) Basophils (%) (Auto) 0.2% (0-3) Prothrombin Time 11.2sec (8.1-12.5) Prothromb Time International Ratio 1.05ratio Sodium Level 141mEq/L (134-144) Potassium Level 5.1mEq/L (3.5-5.2) Chloride Level 102mEq/L (97-108) Carbon Dioxide Level 24mmol/L (18-29) Blood Urea Nitrogen 18mg/dL (8-27) Creatinine 0.81mg/dL (0.76-1.27) Estimat Glomerular Filtration Rate 96mL/min (>59) Glucose Level 80mg/dL (60-99) Calcium Level 8.8mg/dL (8.5-10.1) Phosphorus Level 4.1mg/dL (2.5-4.9) Magnesium Level 1.9mg/dL (1.6-2.6) Total Bilirubin 0.3mg/dL (0.0-1.2) Aspartate Amino Transf (AST/SGOT) 27U/L (0-50) Alanine Aminotransferase (ALT/SGPT) 8U/L (0-44) Alkaline Phosphatase 52U/L (25-160) Pro-B-Type Natriuretic Peptide 703.1pg/mL (0-486) Total Protein 5.4g/dL (6.4-8.4) Albumin 2.7g/dL (3.4-5.0) Plan Impression Patient chart reviewed, patient interviewed and anesthestic plan with risks, benefits, and alternatives discussed, and informed consent obtained. ASA Physical Status: ASA4 Life Threatening Anesthetic Plan: GA Bene/Risks/Altern/Consents: Yes HP Complete Prior to Induction: Yes Elio Mcintyre MD Jul 09, 2016 15:16
[2016-07-09] MEDS ORDERED: Lactated Ringer's 1,000 ML IV ONE (15:28)
[2016-07-09] MEDS ORDERED: Bupivacaine-MPF 0.5% W/EPI 30 mL Inj INFILTRATE ONE (16:06)
[2016-07-09] MEDS ORDERED: Bupivacaine Liposome 1.3% 20 mL Inj INFILTRATE ONE (16:06)
[2016-07-09] MEDS ORDERED: 0.9% Sodium Chloride 10 mL Inj INFILTRATE ONE (16:06)
[2016-07-09] MEDS ORDERED: Lactated Ringer's 500 ML IV PRN (16:11)
[2016-07-09] MEDS ORDERED: Lactated Ringer's 1,000 ML IV SCH (16:11)
[2016-07-09] MEDS ORDERED: HYDROmorphone 1 mg/mL Inj IVPUSH PRN (16:15)
[2016-07-09] MEDS ORDERED: Phenylephrine 10,000 mCg/mL Inj IVPUSH PRN (16:15)
[2016-07-09] MEDS ORDERED: Labetalol 5 mg/mL 4 mL Inj IV PRN (16:15)
[2016-07-09] MEDS ORDERED: Dexamethasone 4 mg/mL Inj IVPUSH PRN (16:15)
[2016-07-09] MEDS ORDERED: Ondansetron 2 mg/mL 2 mL Inj IVPUSH PRN ×2 (16:15→18:15)
[2016-07-09] MEDS ORDERED: fentaNYL-PF 50 mCg/mL 2 mL Inj IVPUSH PRN (16:15)
[2016-07-09] MEDS ORDERED: EPHEDrine Sulfate 50 mg/mL Inj IVPUSH PRN (16:15)
[2016-07-09] MEDS ORDERED: MetoCLOpramide 5 mg/mL 2 mL Inj IVPUSH PRN (16:15)
--- NOTE | 2016-07-09 16:17 | NUR ---
Social Work-initial assessment: Data:See initial assessment. Pt is a 85 y/o male who was admitted on 07/08/16 for Hip Fx per H&P. Pt's insurance is [employer] and PCP is Jaycob Peterson MD. EMR Reviewed. Pt's readmission score is 3-high risk. SW met with pt to discuss discharge planning, SW role explained and initial assessment complete. Pt is alert and oriented x3. Pt resides at home alone in a single level home with five steps to enter where pt remains independent with basic ADLs. Pt uses a walker at baseline and does not drive. Pt has no HH or SNF history. Pt has not completed DPOA/ advanced directive and is not interested in information. Patient reported that his NOK is his daughter Leslie Sun-dtr [phone]. Pt has no group home care or VA benefits. SW will continue to follow patient to rule out HH. Pt's family to provide transport home at discharge. SW provided phone number and plan on white board in room. SW will continue to follow. Plan: Pt to likely discharge home with HH vs Home no needs. SW will continue to follow. Vargas Strange LMSW, HEIDI Addendum: 07/09/16 at 1622 by VARGAS STRANGE Amended: Links added.
[2016-07-09] MEDS ORDERED: Magnesium Hydroxide 10 mL Oral Concentration PO PRN (18:15)
[2016-07-09] MEDS ORDERED: Polyethylene Glycol (PEG) 17 Gm Powder PO PRN (18:15)
[2016-07-09] MEDS ORDERED: HYDROcodone-APAP 5-325 mg Tablet PO PRN (18:15)
[2016-07-09] MEDS ORDERED: HYDROmorphone 0.5 mg/0.5 mL iSecure Syringe IVPUSH PRN (18:15)
[2016-07-09] MEDS ORDERED: diphenhydrAMINE 25 mg Capsule PO PRN (18:15)
--- NOTE | 2016-07-09 18:18 | CONS ---
[address] [address] CONSULTATION REPORT PATIENT: PAUL LI : 1930 MR#: [id number] ADMIT: 07/08/2016 JOB ID: [id number] DATE OF SERVICE: 07/09/2016 CHIEF COMPLAINT: Left hip pain. HISTORY OF PRESENT ILLNESS: The patient is a 85-year-old male who was recently hospitalized for pneumonia and has had left hip pain for about three weeks. He had a fall on Friday which seemed to worsen his hip pain and had a CT scan performed which demonstrated a femoral neck fracture. He normally ambulates with a walker, but has been having a very difficult time and this been two-person assist recently. He complains of sharp pain in the left hip and groin. PAST MEDICAL HISTORY: Significant for type 2 diabetes, cerebrovascular accident, hypertension, hyperlipidemia, atrial fibrillation and pneumonia. ALLERGIES: 1. METFORMIN. 2. HALOPERIDOL. PHYSICAL EXAMINATION: Blood pressure 147/62, pulse rate 53, respirations 16, temperature 36.6. He is alert and cooperative in some distress secondary to his left hip. Answers questions appropriately. Left hip skin is intact. He has pain with range of motion of the left hip, radiating into the groin. Left lower extremity is shortened and externally rotated. He is able to move his toes. Sensation to foot is intact. His feet are warm, pink and well perfused. He has some limited use in his right upper extremity secondary to CVA. CT scan was reviewed demonstrates a femoral neck fracture. ASSESSMENT: Left femoral neck fracture. PLAN: We discussed treatment options for this and he and his daughter wished to proceed with a left hip hemiarthroplasty. We discussed the risks, benefits, and possible complications of surgery. All questions were answered and they wished to proceed. We also did discuss nonoperative treatment as an option, but they were amenable to surgical treatment in the hopes that he will be more comfortable and be able to regain his ambulatory status as he was walking about 10 steps even recently with the fracture. I will plan for surgery today.
--- NOTE | 2016-07-09 18:32 | PCM.ANEP1 ---
Post Anesthesia Phase 1 PACU Phase 1 Assessment Vital Signs Vital Signs Date Time Temp Pulse Resp B/P Pulse Ox O2 Delivery O2 Flow Rate FiO2 07/09/16 18:20 72 16 117/44 100 Room Air 07/09/16 18:15 69 16 112/71 100 Room Air 07/09/16 18:10 70 16 137/49 100 Simple Mask 8 07/09/16 18:08 36.8 70 16 140/50 100 Simple Mask 8 07/09/16 11:59 36.6 53 16 147/62 97 Room Air Anesthetic Administered: GA Level of Alertness: Awake, talking Pain: No Pain Scale Score: 4 Nausea or Vomiting: No Oxygen Delivery: Room Air Lungs: Normal Air Movement Elio Mcintyre MD Jul 09, 2016 18:32
--- NOTE | 2016-07-09 18:32 | PCM.ANEP2 ---
Post Anesthesia Evaluation ASA/CMS Post Anesthesia VS in Patient's Normal Range?: Yes Resp Stable; Airway Patent?: Yes CV Function & Hydration Stable: Yes Mental Status Recovered?: Yes Pain control Satisfactory?: Yes N/V Control Satisfactory?: Yes Elio Mcintyre MD Jul 09, 2016 18:32
[2016-07-09] MEDS: 0.9% Sodium Chloride 1,000 ML IV SCH (19:29)
[2016-07-09] MEDS: Acetaminophen IV 1,000 MG in IV Premix 1 EACH IV SCH (19:52)
--- NOTE | 2016-07-09 20:02 | DRSVH ---
PROCEDURE: X-RAY PELVIS W/LAT HIP (LT) ([id number]) INDICATIONS: post op TECHNIQUE: AP pelvis and lateral view of the left hip acquired. COMPARISON: [facility], CT, CT HIP LT WO CON, 07/08/2016, 14:02. FINDINGS: Bones: Patient is status post left hip arthroplasty, with hardware components in expected positions. The hip joint appears congruent. The visualized bony structures appear intact. Left total hip art hroplasty with additional cerclage wires are present, establishing virtual anatomic alignment. Soft tissues: Overlying postoperative changes are noted. No suspicious soft tissue densities. IMPRESSION: Virtual anatomic alignment established after fracture fixation with total hip arthroplas ty and cerclage wires involving the proximal femur. Dictated by: Shamar Strauss M.D. on 07/09/2016 at 19:59 Approved by: Shamar Strauss M.D. on 07/09/2016 at 20:00
--- NOTE | 2016-07-09 20:17 | OP ---
[address] [address] OPERATIVE REPORT PATIENT: PAUL LI : 1930 MR#: [id number] ADMIT: 07/08/2016 JOB ID: [id number] DATE OF SURGERY: 07/09/2016 SURGEON: Jay Metzger DO PREOPERATIVE DIAGNOSIS(ES): Left displaced femoral neck fracture. POSTOPERATIVE DIAGNOSIS(ES): Left displaced femoral neck fracture. PROCEDURE: Left hip hemiarthroplasty with proximal femur open reduction and internal fixation with cables. GRAIN PROCESSOR: Pennie Rivas PA-C. ANESTHESIA: LMA general. INDICATIONS: The patient is an 85-year-old male who fell initially several weeks ago, was admitted to the hospital for pneumonia and then had a repeat fall last night and a CT scan was performed showing a displaced femoral neck fracture. We discussed treatment options with the patient and his daughter who wished to proceed with a left hip hemiarthroplasty. We discussed the risks, benefits, and possible complications of surgery. All questions were answered and they wished to proceed. A surgical aide was required for the successful completion of this procedure. PROCEDURE IN DETAIL: The patient was brought to the operating room. He was given a preoperative antibiotic and general anesthetic, placed comfortably into the lateral decubitus position. The left hip was sterilely prepped and draped. An incision was made centered over the greater trochanter in line with the femur. Dissection was carefully carried through the subcutaneous tissue and electrocautery was used for hemostasis. A split was then made in the iliotibial band in line with the skin incision and the Charnley retractor was placed. A split was then made in the gluteus medius between the junction of the anterior 1/3 and posterior 2/3, and Hohmann retractors were placed on either side of the femoral neck. Next, an anterior sleeve of tissue was released off of the proximal femur to a point just distal to the vastus tubercle. A small triangular portion of capsule was resected as well. The femoral neck was quite comminuted but was recut to freshen it up, and the multiple fragments were removed. The femoral head was then removed with a corkscrew and a Rand and the acetabulum was sized, felt to be a size 47. Next, the femur was prepared beginning with a box osteotome. This was broached sequentially up to a size 6 Tri-Lock stem, and we performed a trial, however, it seemed to fit long and I then backed down to the size 5 stem and did some additional broaching and then went back to the 6 which we were able to get it more distal at this point and then we decided to use a Tri Lock size 6 stem. The hip was irrigated and the 6 press-fit stem was inserted. During insertion it was noted that the stem subsided a bit more distally than it had previously, and a crack was noticed in the proximal femur calcar region. I elected to fixate this with cables and passed a total of three cables; one distal to the fracture, one just below the lesser trochanter and one above the lesser in order to stabilize the fracture. These were then tightened and a standard +1.5 head was chosen and impacted into position. The hip was relocated and had excellent range of motion and equal leg lengths. The wound was then copiously irrigated and closed with #5 Ethibond to repair the hip capsule and to repair the gluteus medius. The remainder of the gluteus medius and vastus lateralis was repaired with #1 Surgilon and 0-Vicryl. The iliotibial band was repaired with a running 0-Vicryl and the subcu was closed with 2-0. The skin was closed with a running 3-0 V lock suture. An admixture of Marcaine mixed with saline and Exparel was added as an adjunct local anesthetic. Sterile dressings were applied. Patient tolerated the procedure well. Blood loss was 150 cc. COMPLICATIONS: Proximal femur periprosthetic fracture. POSTOPERATIVE PROTOCOL: Will have the patient remain toe-touch weightbearing on the left lower extremity for a period of six weeks. I would like him to have x-rays at the two week follow-up visit and will defer to Internal Medicine with regard to DVT prophylaxis. Will start the patient on Lovenox, but he could be switched to Coumadin or continued on Lovenox. He does, however, have a low platelet count which could be a contraindication to usage of Lovenox. FRANCISCO J
[2016-07-09] MEDS: Senna-Docusate 8.6-50 mg Tablet PO SCH (20:35)
[2016-07-09] MEDS: Albuterol-Ipratropium 3 mL Inhalation Solution INHALATION SCH (23:36)
[2016-07-09] MEDS: Sodium Chloride LOK Flush 10 mL Syringe IV SCH (23:39)
[2016-07-09] MEDS: CeFAZolin Inj 2,000 MG in Dextrose 5% 50 ML IV SCH (23:51)
[2016-07-10] VITALS (11 sets, daily range): BP systolic 89–118; BP diastolic 45–62; PULSE 62–78; RESP 12–20; O2SAT 90–98
[2016-07-10] MEDS: Acetaminophen IV 1,000 MG in IV Premix 1 EACH IV SCH ×4 (02:06→18:15)
--- NOTE | 2016-07-10 02:22 | NUR ---
Post Op Patient arrived back on unit around 1914 via OSC bed. A&Ox3, answering questions appropriately. Denies pain/discomfort. IV patent and infusing. Abductor pillow in place. Tolerating clears w/o any N/V. Vale noted to be leaking x2, requiring bed change. Vale d/c'd @ 2760. One soft BM this shift. [place] alarm in place for safety.
[2016-07-10] MEDS: HYDROcodone-APAP 5-325 mg Tablet PO PRN ×2 (04:43→08:47)
[2016-07-10] MEDS: 0.9% Sodium Chloride 1,000 ML IV SCH ×3 (05:30→18:58)
--- NOTE | 2016-07-10 06:01 | PCM.PNORTH ---
Subjective Date of Service: Jul 10, 2016 Visit Information: Reason for Visit Hip Fracture Surgery/Surgery Date L TOTAL HIP LAWRENCE ARTHROPLASTY 07/09/16 Post-Op Day # Date of Admission: Jul 08, 2016 at 18:28 Hospital Day # Subjective Found patient sleeping this morning and easily awakened. Complains of discomfort of left hip pain worse than he is ever had but is not agitated and does not appear to be in pain and speaks with a compromise. Patient does follow commands and will answer questions but does appear somnolent. Postop General: No Shortness of Breath, No Chest Pain Pain Management: PO Objective Exam Objective Alert and cooperative in no acute distress Interoperative dressings clean dry and intact Calf and thigh are soft and nontender Toe wiggle and sensation are intact the left lower extremity distally Abduction wedge in place Collazo is absent SCDs in place at right lower extremity Vital Signs and I/O Vital Sign - Last Date Time Temp Pulse Resp B/P Pulse Ox O2 Delivery O2 Flow Rate FiO2 07/10/16 04:49 36.5 62 20 104/59 97 Room Air 07/09/16 23:48 2.00 Intake and Output 07/09/16 07/09/16 07/10/16 Cumulative From/Thru 15:00 23:00 07:00 07/08/16 15:18 - 07/10/16 05:35 Intake Total 900 ml 1129 ml 2379 ml Output Total 502 ml 752 ml Balance 398 ml 1129 ml 1627 ml Intake Oral 350 ml IV Total 900 ml 1129 ml 2029 ml Output Urine Total 352 ml 602 ml Estimated Blood Loss 150 ml 150 ml # Bowel Movements 0 Lab & Micro Results Microbiology 07/08/16 Urine Culture - Preliminary, Resulted No growth to date Result Diagram: 07/09/16 0443 07/09/16 0443 General Appearance: Alert, Cooperative, No Acute Distress Extremities: No Compartment Syndrom Noted, Thigh & Calf Soft/Nontender Postop Sensory Motor: Movement in Toes, Distal Sensation Intact Activity: Activity per PT, Ambulate with PT (touch toe weightbearing on the left lower extremity using front wheeled walker 6 weeks postop.) Catheters: None Assessment & Plan Impression Everette Joseph is a frail-appearing 85-year-old male who is undergone traumatic left hip fracture with left hip hemiarthroplasty with cables performed on [address] Jay Metzger. Patient is alert and communicative and somewhat somnolent at my first contact this morning. Problems: Plan Postop day #1 from left hip fracture with subsequent left hip hemiarthroplasty with cables performed on 07/09/[address] Jay Metzger. Touch toe weightbearing only on the left lower extremity using a front wheeled walker. Continue formal physical therapy for mobility, gait and safety. Continue by mouth pain medication as needed with orientation to avoid IV pain medication if possible. DVT prophylaxis per hospitalist. Orthopedics has started patient on Lovenox but this may be changed at hospitalist discretion. Interoperative dressing will be changed on postop day #2. Collazo is absent. Nursing please fit bilateral SCDs today. Nursing please fit bilateral thigh-high CLAY hose which are ordered today. Follow-up in 2 weeks at [facility] orthopedic clinic with medical provider for suture removal and wound check. AP pelvis and left crosstable lateral hip x -rays on arrival. Follow-up in 6 weeks at [facility] orthopedic clinic with Dr. Jay Metzger with left two-view hip x-rays on arrival. Orthopedics thanks hospitalist service for their help in the medical management of this patient. Anticipate discharge to group home facility by hospitalist service on postop day #3 or when determined to be medically appropriate per hospitalist service. VTE Prophylaxis: Sub-Q Enoxaparin (Lovenox 40 mg subcutaneous daily for DVT prophylaxis), Walker Ridley PA-C Jul 10, 2016 06:01
[2016-07-10 06:04] LABS: BASOPHILS % (AUTO) 0.1 % (0-3); EOSINOPHILS % (AUTO) 0.1 % (0-5); MONOCYTES % (AUTO) 8.3 % (4-12); Mean Corpuscular Hemoglobin 28.9 pg (27.0-35.0); NEUTROPHILS % (AUTO) 61.6 % (40-74); Platelet Count 91 bil/L (150-400)
[2016-07-10 06:43] LABS: Magnesium 1.7 mg/dL (1.6-2.6); Phosphorus 5.2 mg/dL (2.5-4.9)
[2016-07-10] MEDS: Sodium Chloride LOK Flush 10 mL Syringe IV SCH ×3 (08:30→23:30)
[2016-07-10] MEDS: Senna-Docusate 8.6-50 mg Tablet PO SCH ×2 (08:30→19:36)
[2016-07-10] MEDS: Albuterol-Ipratropium 3 mL Inhalation Solution INHALATION SCH ×3 (08:39→19:49)
[2016-07-10] MEDS: Lidocaine Topical 5% Patch TOPICAL SCH (08:47)
--- NOTE | 2016-07-10 09:08 | DRSVH ---
[facility] [address] [place] [address] Echocardiogram Report Name: PAUL LI LStudy Date: 07/09/2016 Height: 68 in Hospital Exam Location: [facility] Weight: 139 lb Gender: Male BSA: 1.8 m2 : 1930 Age: 85 yrs BP: 145/67 m mHg Reason For Study: Pre-surgical evaluation Ordering Physician: HOSPITALIST [facility] Performed By: Evette Marie Referring Physician: Dr. Jaycob Peterson Interpretation Summary The ejection fraction is estimated to be 65-70%. There is mild aortic valve sclerosis. There is trace mitral regurgitation. Procedure: A two-dimensional transthoracic echocardiogram with color flow and Doppler was performed. The study quality was technically adequate. There is no prior echocardiogram noted for this patient. The patient was in normal sinus rhythm during the exam. Left Ventricle: The left ventricle is normal in size. There is normal left ventricular wall thickness. The ejection fraction is estimated to be 65-70%. The E/A ratio is reversed, suggesting impaired early relaxation of the left ventricle or a reduced preload state. Right Ventricle: The right ventricle is normal in size and function. Atria: The left atrial size is normal. Right atrial size is normal. The interatrial septum is intact with no evidence for an atrial septal defect. Mitral Valve: The mitral valve is normal in structure and function. There is trace mitral regurgitation. Aortic Valve: The aortic valve opens well. There is mild aortic valve sclerosis. No aortic regurgitation is present. Tricuspid Valve: The tricuspid valve is normal in structure and function. No tricuspid regurgitation. Pulmonic Valve: The pulmonic valve is not well visualized. There is trace pulmonic regurgitation. Great Vessels: The aortic root is normal size. The dimensions of the ascending aorta are normal. The inferior vena cava was not visualized. Pericardium/ Pleura There is no pericardial effusion. There is no pleural effusion. MMode/2D Measurements & Calculations LVIDd: 3.0 cm LA dimension LVOT diam: 1.9 cm LV baez. diameter/BSA LVIDs: 1.5 cm Ao root diam (cm/m^2): 1.7 FS: 50.9 % LA A2 area IVSd: 0.67 cm Aortic Jxn LVPWd: 0.82 cm LA A4 area asc Aorta Diam LA length Ao Arch Diam (vol): 4.7 cm (Prox Trans): LA vol: 50.5 ml .9 cm LA vol index : 28.8 ml/m2 LV sys. diameter/BSA (cm/m^2): 0.85 Doppler Measurements & Calculations Ao V2 max MV E max edgar MV E/A: 0.64 PA V2 max : 167.7 cm/sec : 61.8 cm/sec Med Peak E' Edgar : 96.0 cm/sec Ao max PG MV A max edgar PA mean PG : 11.3 mmHg : 96.7 cm/sec E/E' med: 10.1 Ao mean PG MV P1/2t: 139.5 msec Lat Peak E' Edgar PA Accel Time : 0.11 sec LVOT Max Edgar E/E' lat: 8.8 : 98.3 cm/sec E/e' average: 9.4 MV A dur: 0.12 sec LAURENCE(I,D): 1.5 cm sev ratio MV dec time MV P1/2t max edgar Ao V2 mean LV V1 max PG : 0.47 sec : 115.2 cm/sec MVA(P1/2t): 1.6 cm2 Ao V2 VTI: 34.7 cm LV V1 VTI LAURENCE(V,D): 1.6 cm2 : 19.4 cm PA V2 mean LAURENCE indexed to BSA : 65.8 cm/sec (cm^2/m^2): 0.86 Electronically signed by: Jake Zamora on Reading Physician:07/09/2016 11:55 AM
--- NOTE | 2016-07-10 09:20 | PCM.PNMED ---
Subjective Date of Service Jul 10, 2016 Subjective Patient complaining of pain on the surgical site, but manageable Denied difficulty breathing cough or phlegm Exam Vital Signs Vital Sign - Last Date Time Temp Pulse Resp B/P Pulse Ox O2 Delivery O2 Flow Rate FiO2 07/10/16 09:11 63 07/10/16 08:57 17 94 Room Air 07/10/16 08:44 36.8 118/62 07/09/16 23:48 2.00 Intake and Output 07/09/16 07/09/16 07/10/16 Cumulative From/Thru 15:00 23:00 07:00 07/08/16 15:18 - 07/10/16 05:35 Intake Total 900 ml 1129 ml 2379 ml Output Total 502 ml 752 ml Balance 398 ml 1129 ml 1627 ml Intake Oral 350 ml IV Total 900 ml 1129 ml 2029 ml Output Urine Total 352 ml 602 ml Estimated Blood Loss 150 ml 150 ml # Bowel Movements 0 Exam NAD, comfortably laying down on the bed no JVD, MMM, no LAD RRR, nl s1, s2 no mrg CTAB, no w,c S,ND,NT,normoactive BS+ warm, no edema, pulses 2/2 bilaterally, moves toes, sensory intact Lt hip, sterilely dressed IVs and Medications Medications Reviewed: Medications were reviewed in detail Lab and Diagnostics Result Diagram: 07/10/16 0535 07/10/16 0535 X-Rays, CTs and MRIs ROCEDURE: CT HIP LEFT W/O CONTRAST (90402) INDICATIONS: STABBING PAIN TO LEFT HIP TECHNIQUE: Noncontrast 3 mm axial sections acquired through the bony pelvis. Additional 3 mm axial sections acquired through the symptomatic hip joint, with coronal and sagittal reformats. COMPARISON: None. FINDINGS: Image quality: Excellent. Bones: Bones are osteoporotic. There is a subacute left femoral neck fracture with angulation and displacement deformity. There is mild cortical deformity in the medial aspect of the inferior ramus of the left ischium on axial imaging, series 2/image 64, suggesting nondisplaced obturator ring fracture. Soft tissues: Fat filled bilateral inguinal hernias. IMPRESSION: Subacute fracture left femoral neck. Possible left obturator ring fracture, nondisplaced. Note: Findings called to Dr. Mango Murray at 1445 hrs. on 07/08/2016. Patient transferred to the ED by shadi at his request. Dictated by: Benjamin Alcala M.D. on 07/08/2016 at 14:38 Approved by: Benjamin Alcala M.D. on 07/08/2016 at 14:55 Assessment & Plan 85-year-old malen with history of DM type II, CVA, HTN, hyperlipidemia, a-fib on Coumadin, CAD, JULES, and osteoarthritis p/w hip pain. acute, active Lt hip pain s/p fall, POA, CT of hip showed subacute subacute fracture left femoral neck. Possible left obturator ring fracture, nondisplaced. underwent surgery L TOTAL HIP LAWRENCE ARTHROPLASTY 07/09/16, no Cx observed. -appreciate orthopedics post management, pain/dvt ppx -pain control with dilaudid, -zofran for n/v -PT Coronary artery disease, with history of ND in 1993 and NSTEMI in 11/17, no active cardiac condition to postpone the surgery, pre-op assessment-CXR showed mild pulmonary edema, but clinically pt seems euvolemic, maintain oxygenation w/ o O2 supplement, no s/s of acute CHF, no active chest pain, EKG showed normal sinus, no high degree blocks. -no periop cardiac event, monitor sx closely. Afib, likely proxysmal, INR in normal range, pt is not Coumadin, held aspirin periop, likely to resume today, defer to ortho. 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 Osteoarthritis, spine. History of psoriasis, previously on Barb. Iron deficiency anemia, chronic. Bladder diverticulum with hematuria, s/p surgical repair. BPH. Vertebral artery stenosis, left. Internal carotid artery stenosis. US 11/17 : 50-75% LICA, 50% NATALEE Colon polyps. dispo:likely 07/12 diet:cardiac/diabetic dvt ppx:SCD DNR/DNI, but okay for anesthesia for surgery VTE Prophylaxis: Sub-Q Enoxaparin (Lovenox 40 mg subcutaneous daily for DVT prophylaxis), SCDs Time spent 35min Jillian Alex MD Jul 10, 2016 09:20
--- NOTE | 2016-07-10 10:56 | NUR ---
Evaluation completed. Please go to "Notes" then click on "Assessments and Notes" (bottom left corner of screen). Then select appropriate discipline tab on top of screen.
[2016-07-10] MEDS: CeFAZolin Inj 2,000 MG in Dextrose 5% 50 ML IV SCH (11:03)
[2016-07-10] MEDS ORDERED: Glucose 40% Oral Gel 15 Gm Tube PO PRN (13:00)
[2016-07-10] MEDS: Dextrose 5% 0.45% NaCl 1,000 ML IV SCH (14:00)
--- NOTE | 2016-07-10 14:25 | NUR ---
Gave access and faxed facesheet to Dee Dee araya MSW
--- NOTE | 2016-07-10 14:43 | NUR ---
Low BP BP this afternoon is running low, pt asymptomatic and hospitalist aware. See VS section for numbers. Afternoon metoprolol dose held, spoke to hospitalist, and we are in agreement. Pt currently resting. Call light w/in reach.
--- NOTE | 2016-07-10 15:34 | NUR ---
Social Work Continued Discharge Planning Data: Pt is on day 2 of hospitalization for hip fracture per H&P. PT is recommending SNF for RN and PT. SW met with pt at bedside to follow up re: SNF choice list. Pt stated [facility] as his preference. UR specialist sent referral info to [facility]. SW will follow up with pt when [facility] responds. PASRR in file. SW will continue to follow. Assessment: Pt who would benefit from SNF. Plan: Pt will likely discharge to SNF. UR specialist sent referral info to [facility]. SW will follow up with pt when [facility] responds. PASRR in file. SW will continue to follow.SW will continue to follow. LADI Nathan
--- NOTE | 2016-07-10 15:57 | NUR ---
Limited evaluation completed. Please go to "Notes" then click on "Assessments and Notes" (bottom left corner of screen). Then select appropriate discipline tab on top of screen.
[2016-07-10] MEDS: Insulin LISPRO 300 Unit/3 mL Inj SUBQ SCH ×2 (17:28→21:39)
--- NOTE | 2016-07-10 17:48 | NUR ---
Nurse Swallow Observation Pt up to a 60degree angle in bed. Dinner was diced up chicken, steamed broccoli, sherbert and milk, pt observed feeding himself, refused 1:1 feed. No coughing observed or s/s of swallowing difficulty while eating. shortly after his last bite he did cough a bit. no gurgling voice or watery eyes.
[2016-07-11] VITALS (8 sets, daily range): BP systolic 87–133; BP diastolic 44–66; PULSE 52–75; RESP 16–18; O2SAT 93–96
--- NOTE | 2016-07-11 02:07 | NUR ---
BP/Activity/Pain HS Norvasc and Metoprolol held. Patient with asymptomatic hypotension on day shift. Hospitalist okayed withholding BP meds @ that time. Blood pressure @ HS unchanged from afternoon reading (102/51), so HS doses held as well. No c/o pain or discomfort. Doesn't reposition self independently in bed, remains on Q2hour turns. [place] alarm in place for safety.
[2016-07-11] MEDS: Dextrose 5% 0.45% NaCl 1,000 ML IV SCH ×2 (02:24→16:40)
[2016-07-11 05:43] LABS: BASOPHILS % (AUTO) 0.2 % (0-3); EOSINOPHILS % (AUTO) 0.8 % (0-5); MONOCYTES % (AUTO) 7.4 % (4-12); Mean Corpuscular Hemoglobin 29.1 pg (27.0-35.0); Mean Corpuscular Volume 95.1 fL (81-100); NEUTROPHILS % (AUTO) 58.2 % (40-74); Platelet Count 86 bil/L (150-400)
--- NOTE | 2016-07-11 06:18 | PCM.PNORTH ---
Subjective Date of Service: Jul 11, 2016 Visit Information: Reason for Visit Hip Fracture Surgery/Surgery Date L TOTAL HIP LAWRENCE ARTHROPLASTY 07/09/16 Post-Op Day # Date of Admission: Jul 08, 2016 at 18:28 Hospital Day # Subjective Found patient sleeping and easily awakened. Responds easily to questions and offers questions of his own regarding his condition and care. Changed patient' s bandages morning and wound was found in good condition. Explained to patient that he would likely discharge to half-way facility when cleared to do so by hospitalist service. Postop General: No Shortness of Breath, No Chest Pain Pain Management: PO Objective Exam Objective Awake and communicative and pleasant. Hemoglobin 7.1, hematocrit 23 Interoperative dressing is clean dry and intact. Dressing is changed his morning and wound is found in good condition with no drainage. Calf and thigh are soft and nontender. Toe wiggle and sensation are intact that left lower extremity distally Collazo is absent Abduction wedge is absent Vital Signs and I/O Vital Sign - Last Date Time Temp Pulse Resp B/P Pulse Ox O2 Delivery O2 Flow Rate FiO2 07/11/16 05:18 36.7 75 18 133/50 93 Room Air 07/09/16 23:48 2.00 Intake and Output 07/10/16 07/10/16 07/11/16 Cumulative From/Thru 14:59 22:59 06:59 07/08/16 15:18 - 07/11/16 05:38 Intake Total 640 ml 1557 ml 972 ml 5548 ml Output Total 305 ml 1057 ml Balance 335 ml 1557 ml 972 ml 4491 ml Intake Oral 640 ml 436 ml 1426 ml IV Total 1121 ml 972 ml 4122 ml Output Urine Total 305 ml 907 ml Estimated Blood Loss 150 ml # Voids 2 2 4 # Bowel Movements 1 1 Lab & Micro Results Laboratory Tests Test 07/11/16 04:47 White Blood Count 6.1th/mm3 (3.8-10.1) Red Blood Count 2.44mil/mm3 (4.40-5.80) Hemoglobin 7.1g/dL (13.8-17.2) Hematocrit 23.2% (41.0-50.0) Mean Corpuscular Volume 95.1fL (81-100) Mean Corpuscular Hemoglobin 29.1pg (27.0-35.0) Mean Corpuscular Hemoglobin Concent 30.6% (32.0-37.0) Red Cell Distribution Width 17.8% (12.3-15.4) Platelet Count 86bil/L (150-400) Neutrophils (%) (Auto) 58.2% (40-74) Lymphocytes (%) (Auto) 33.2% (14-46) Monocytes (%) (Auto) 7.4% (4-12) Eosinophils (%) (Auto) 0.8% (0-5) Basophils (%) (Auto) 0.2% (0-3) Sodium Level 141mEq/L (134-144) Potassium Level 3.8mEq/L (3.5-5.2) Chloride Level 104mEq/L (97-108) Carbon Dioxide Level 25mmol/L (18-29) Blood Urea Nitrogen 29mg/dL (8-27) Creatinine 0.78mg/dL (0.76-1.27) Estimat Glomerular Filtration Rate 101mL/min (>59) Glucose Level 202mg/dL (60-99) Calcium Level 8.0mg/dL (8.5-10.1) Microbiology 07/08/16 Urine Culture - Final, Complete No growth (<1,000 organisms/mL) Result Diagram: 07/11/16 0447 07/10/16 0535 General Appearance: Alert, Oriented X3, Cooperative, No Acute Distress Extremities: No Compartment Syndrom Noted, Thigh & Calf Soft/Nontender Postop Sensory Motor: Distal Motor Intact, Movement in Toes, Distal Sensation Intact Activity: Activity per PT, Ambulate with PT (touch toe weightbearing on the left lower extremity using front wheeled walker 6 weeks postop.) Catheters: None Assessment & Plan Plan Postop day #2 from left hip fracture with subsequent left hip hemiarthroplasty with cables performed on 07/09/[address] Jay Metzger. Hemoglobin 7.1, hematocrit 23. Hospitalist service may consider transfusion if H&H continues to drop. Touch toe weightbearing only on the left lower extremity using a front wheeled walker. Continue formal physical therapy for mobility, gait and safety. Continue by mouth pain medication as needed. DVT prophylaxis per hospitalist. Orthopedics has started patient on Lovenox but this may be changed at hospitalist discretion. Interoperative dressing is changed this morning and wound its found in good condition with no drainage and no focal erythema or swelling. Change dressings when necessary at this time. Collazo is absent. Bilateral SCDs in place. Abduction wedge was DC'd yesterday. Nursing please fit bilateral thigh-high CLAY hose which are ordered 07-10-16. Follow-up in 2 weeks at [facility] orthopedic clinic with medical provider for suture removal and wound check. AP pelvis and left crosstable lateral hip x -rays on arrival. Follow-up in 6 weeks at [facility] orthopedic clinic with Dr. Jay Metzger with left two-view hip x-rays on arrival. Orthopedics thanks hospitalist service for their help in the medical management of this patient. Anticipate discharge to half-way facility by hospitalist service on postop day #3 or when determined to be medically appropriate per hospitalist service. VTE Prophylaxis: Sub-Q Enoxaparin (Lovenox 40 mg subcutaneous daily for DVT prophylaxis), Walker Ridley PA-C Jul 11, 2016 06:18
[2016-07-11] MEDS: Insulin LISPRO 300 Unit/3 mL Inj SUBQ SCH ×4 (08:14→21:19)
[2016-07-11] MEDS ORDERED: Albuterol-Ipratropium 3 mL Inhalation Solution INHALATION PRN (08:30)
--- NOTE | 2016-07-11 09:08 | PCM.PNMED ---
Subjective Date of Service Jul 11, 2016 Subjective pt denied SOB, but noticed mild hypoxia low 90s on v/s denied cough, sputum, mild pain on surgical site but seems to be controlled only with tylenol Exam Vital Signs Vital Sign - Last Date Time Temp Pulse Resp B/P Pulse Ox O2 Delivery O2 Flow Rate FiO2 07/11/16 05:18 36.7 75 18 133/50 93 Room Air 07/09/16 23:48 2.00 Intake and Output 07/10/16 07/10/16 07/11/16 Cumulative From/Thru 15:00 23:00 07:00 07/08/16 15:18 - 07/11/16 06:01 Intake Total 640 ml 1557 ml 1202 ml 5778 ml Output Total 305 ml 435 ml 1492 ml Balance 335 ml 1557 ml 767 ml 4286 ml Intake Oral 640 ml 436 ml 230 ml 1656 ml IV Total 1121 ml 972 ml 4122 ml Output Urine Total 305 ml 435 ml 1342 ml Estimated Blood Loss 150 ml # Voids 2 2 4 # Bowel Movements 1 0 1 Exam NAD, comfortably laying down on the bed no JVD, MMM, no LAD RRR, nl s1, s2 no mrg CTAB, no w,c S,ND,NT,normoactive BS+ warm, no edema, pulses 2/2 bilaterally, moves toes, sensory intact Lt hip, sterilely dressed IVs and Medications Medications Reviewed: Medications were reviewed in detail Lab and Diagnostics Result Diagram: 07/11/1644607/11/16446 X-Rays, CTs and MRIs ROCEDURE: CT HIP LEFT W/O CONTRAST (73747) INDICATIONS: STABBING PAIN TO LEFT HIP TECHNIQUE: Noncontrast 3 mm axial sections acquired through the bony pelvis. Additional 3 mm axial sections acquired through the symptomatic hip joint, with coronal and sagittal reformats. COMPARISON: None. FINDINGS: Image quality: Excellent. Bones: Bones are osteoporotic. There is a subacute left femoral neck fracture with angulation and displacement deformity. There is mild cortical deformity in the medial aspect of the inferior ramus of the left ischium on axial imaging, series 2/image 64, suggesting nondisplaced obturator ring fracture. Soft tissues: Fat filled bilateral inguinal hernias. IMPRESSION: Subacute fracture left femoral neck. Possible left obturator ring fracture, nondisplaced. Note: Findings called to Dr. Mango Murray at 1445 hrs. on 07/08/2016. Patient transferred to the ED by shadi at his request. Dictated by: Benjamin Alcala M.D. on 07/08/2016 at 14:38 Approved by: Benjamin Alcala M.D. on 07/08/2016 at 14:55 Assessment & Plan 85-year-old malen with history of DM type II, CVA, HTN, hyperlipidemia, a-fib on Coumadin, CAD, JULES, and osteoarthritis p/w hip pain. acute, active Lt hip pain s/p fall, POA, CT of hip showed subacute subacute fracture left femoral neck. Possible left obturator ring fracture, nondisplaced. underwent surgery L TOTAL HIP LAWRENCE ARTHROPLASTY 07/09/16, no Cx observed. -appreciate orthopedics post management, pain/dvt ppx -pain control with dilaudid, -zofran for n/v -PT Coronary artery disease, with history of NM in 1993 and NSTEMI in 11/17, no active cardiac condition to postpone the surgery, pre-op assessment-CXR showed mild pulmonary edema, but clinically pt seems euvolemic, maintain oxygenation w/ o O2 supplement, no s/s of acute CHF, no active chest pain, EKG showed normal sinus, no high degree blocks. -no periop cardiac event, monitor sx closely. Afib, likely proxysmal, INR in normal range, pt is not Coumadin, held aspirin periop, likely to resume today, defer to ortho. mild hypoxia likely due to probable post op mild atelectasis, will encourage use Incentive spirometer, techniques reviewed at the bedside. 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 Osteoarthritis, spine. History of psoriasis, previously on Barb. Iron deficiency anemia, chronic. Bladder diverticulum with hematuria, s/p surgical repair. BPH. Vertebral artery stenosis, left. Internal carotid artery stenosis. US 11/17 : 50-75% LICA, 50% NATALEE Colon polyps. dispo:likely 07/12 diet:cardiac/diabetic dvt ppx:SCD DNR/DNI, but okay for anesthesia for surgery VTE Prophylaxis: Sub-Q Enoxaparin (Lovenox 40 mg subcutaneous daily for DVT prophylaxis), SCDs Time spent 35min Jillian Alex MD Jul 11, 2016 09:08
[2016-07-11] MEDS: 0.9% Sodium Chloride 1,000 ML IV SCH ×2 (10:11→17:48)
[2016-07-11] MEDS: Lidocaine Topical 5% Patch TOPICAL SCH (10:22)
[2016-07-11] MEDS: Senna-Docusate 8.6-50 mg Tablet PO SCH ×2 (10:22→19:40)
[2016-07-11] MEDS: Sodium Chloride LOK Flush 10 mL Syringe IV SCH ×2 (10:22→16:30)
--- NOTE | 2016-07-11 11:29 | NUR ---
Social Work: Readiness for Discharge Data: Pt is on day 3 of hospitalization for hip fracture per H&P. Pt is not medically stable, anticipate 1-2 more days. Pt is POD 2. PT is recommending SNF at this time. LAM spoke with Cecily, coleen at [facility] [phone], who is agreeable to accepting pt at discharge with MD Lizama to follow. Paperwork and pASRR in chart. SW will continue to follow. Assessment: Pt who would benefit from SNF. Plan: Pt will discharge to [facility] with MD Lizama to follow. Paperwork and PASRR in chart. SW will continue to follow. LADI Baptiste
--- NOTE | 2016-07-11 11:31 | NUR ---
Tele Rec'd a call from tele monitor at approx 1050. Pt had 6 beats of VTach at approx 1026. Pt receiving bed bath at that time and is currently resting. Hospitalist aware, no new orders at this time.
[2016-07-11 12:39] LABS: MONOCYTES % (AUTO) 6.8 % (4-12); Mean Corpuscular Hemoglobin 30.7 pg (27.0-35.0); Mean Corpuscular Volume 92.4 fL (81-100); NEUTROPHILS % (AUTO) 57.2 % (40-74); Platelet Count 110 bil/L (150-400)
[2016-07-11] MEDS ORDERED: Potassium Chloride 20 mEq/15 mL 15mL Oral Soln PO ONE (13:20)
[2016-07-11] MEDS ORDERED: Magnesium Sulf 2 Gm/50mL Water 2 GM in IV Premix 1 EACH IV ONE ×2 (13:20→14:15)
[2016-07-11] MEDS ORDERED: 0.9% Sodium Chloride 250 ML ONE (14:29)
[2016-07-11] MEDS ORDERED: 0.9% Sodium Chloride 500 ML IV ONE (18:00)
[2016-07-12] VITALS (11 sets, daily range): BP systolic 110–151; BP diastolic 55–74; PULSE 63–86; RESP 14–16; O2SAT 92–97
[2016-07-12] MEDS: Sodium Chloride LOK Flush 10 mL Syringe IV SCH ×3 (00:33→16:23)
--- NOTE | 2016-07-12 04:44 | NUR ---
BP/Activity. NS Bolus hung on day shift completed at beginning of this shift. BP @ that time: 101/52. Held HS cardiac medications. BP upon recheck: 151/74. Patient sleeping all of shift so far. On Q2hour turns. No c/o pain or discomfort.
[2016-07-12] MEDS: Dextrose 5% 0.45% NaCl 1,000 ML IV SCH ×2 (04:56→19:20)
[2016-07-12] MEDS: 0.9% Sodium Chloride 1,000 ML IV SCH ×2 (05:14→16:11)
[2016-07-12 05:26] LABS: BASOPHILS % (AUTO) 0.2 % (0-3); EOSINOPHILS % (AUTO) 4.2 % (0-5); Mean Corpuscular Hemoglobin 29.6 pg (27.0-35.0); Mean Corpuscular Volume 95.8 fL (81-100); NEUTROPHILS % (AUTO) 49.4 % (40-74); Platelet Count 76 bil/L (150-400)
[2016-07-12 05:38] LABS: Magnesium 2.5 mg/dL (1.6-2.6); Phosphorus 2.1 mg/dL (2.5-4.9)
--- NOTE | 2016-07-12 05:41 | NUR ---
Critical Lab Value Critical hemoglobin value of 6.3. Paged Dr. Chauhan and received order to T&C, transfuse one unit PRBC & recheck CBC one hour after transfusion. Addendum: 07/12/16 at 0632 by CELINE THOMPOSN RN T&C & one unit PRBC ordered. Passed on to oncoming shift to order CBC recheck for one hour after completed transfusion.
--- NOTE | 2016-07-12 06:58 | PCM.PNORTH ---
Subjective Date of Service: Jul 12, 2016 Visit Information: Reason for Visit Hip Fracture Surgery/Surgery Date L TOTAL HIP LAWRENCE ARTHROPLASTY 07/09/16 Post-Op Day # Date of Admission: Jul 08, 2016 at 18:28 Hospital Day # Subjective Found patient sleeping this morning and easily awakened. Patient is less responsive this morning than he has been and did not open his eyes during our contact. Patient did communicate and did follow commands regarding moving of his extremities, etc. The patient has no complaints of pain at this time. Postop General: No Complaints, No Shortness of Breath, No Chest Pain Pain Management: PO Objective Exam Objective Awake and responsive with eyes closed. Postoperative dressing is clean dry and intact Calf and thigh are soft and nontender Toe wiggle and sensation are intact at left lower extremity distally Collazo is absent CLAY hose and SCD in place on left lower extremit. SCD only a right lower extremity. Vital Signs and I/O Vital Sign - Last Date Time Temp Pulse Resp B/P Pulse Ox O2 Delivery O2 Flow Rate FiO2 07/12/16 06:21 80 07/12/16 05:09 36.8 16 124/60 94 Room Air 07/09/16 23:48 2.00 Intake and Output 07/11/16 07/11/16 07/12/16 Cumulative From/Thru 15:00 23:00 07:00 07/08/16 15:18 - 07/12/16 06:36 Intake Total 560 ml 769 ml 7107 ml Output Total 1492 ml Balance 560 ml 769 ml 5615 ml Intake Oral 458 ml 250 ml 2364 ml IV Total 102 ml 519 ml 4743 ml Output Urine Total 1342 ml Estimated Blood Loss 150 ml # Voids 2 2 8 # Bowel Movements 2 3 Lab & Micro Results Laboratory Tests Test 07/11/16 12:10 07/12/16 04:43 White Blood Count 8.1th/mm3 (3.8-10.1) 5.5th/mm3 (3.8-10.1) Red Blood Count 2.38mil/mm3 (4.40-5.80) 2.13mil/mm3 (4.40-5.80) Hemoglobin 7.3g/dL (13.8-17.2) 6.3g/dL (13.8-17.2) Hematocrit 22.0% (41.0-50.0) 20.4% (41.0-50.0) Mean Corpuscular Volume 92.4fL (81-100) 95.8fL (81-100) Mean Corpuscular Hemoglobin 30.7pg (27.0-35.0) 29.6pg (27.0-35.0) Mean Corpuscular Hemoglobin Concent 33.2% (32.0-37.0) 30.9% (32.0-37.0) Red Cell Distribution Width 17.8% (12.3-15.4) 17.9% (12.3-15.4) Platelet Count 110bil/L (150-400) 76bil/L (150-400) Neutrophils (%) (Auto) 57.2% (40-74) 49.4% (40-74) Lymphocytes (%) (Auto) 30.4% (14-46) 40.0% (14-46) Monocytes (%) (Auto) 6.8% (4-12) 6.0% (4-12) Eosinophils (%) (Auto) 2.0% (0-5) 4.2% (0-5) Basophils (%) (Auto) 1.0% (0-3) 0.2% (0-3) Band Neutrophils % 0% (1-5) Sodium Level 144mEq/L (134-144) Potassium Level 4.3mEq/L (3.5-5.2) Chloride Level 108mEq/L (97-108) Carbon Dioxide Level 26mmol/L (18-29) Blood Urea Nitrogen 23mg/dL (8-27) Creatinine 0.64mg/dL (0.76-1.27) Estimat Glomerular Filtration Rate 126mL/min (>59) Glucose Level 126mg/dL (60-99) Calcium Level 7.8mg/dL (8.5-10.1) Phosphorus Level 2.1mg/dL (2.5-4.9) Magnesium Level 2.5mg/dL (1.6-2.6) Total Bilirubin 0.3mg/dL (0.0-1.2) Aspartate Amino Transf (AST/SGOT) 17U/L (0-50) Alanine Aminotransferase (ALT/SGPT) 6U/L (0-44) Alkaline Phosphatase 38U/L (25-160) Total Protein 4.1g/dL (6.4-8.4) Albumin 2.2g/dL (3.4-5.0) Microbiology 07/08/16 Urine Culture - Final, Complete No growth (<1,000 organisms/mL) Result Diagram: 07/12/1644207/12/16442 General Appearance: Cooperative, No Acute Distress Extremities: No Compartment Syndrom Noted, Thigh & Calf Soft/Nontender Postop Sensory Motor: Distal Motor Intact, Movement in Toes, Distal Sensation Intact Activity: Activity per PT, Ambulate with PT (touch toe weightbearing on the left lower extremity using front wheeled walker 6 weeks postop.) Catheters: None Assessment & Plan Impression Patient is a 85-year-old gentleman who has suffered a left hip fracture with subsequent left total hip arthroplasty with cables on 07/09/2016. He has been somnolent and poorly participates with physical therapy since his surgery. He is well-positioned and appears comfortable and is responsive but has not initiated conversation. Problems: Plan Postop day #3 from left hip fracture with subsequent left hip hemiarthroplasty with cables performed on 07/09/[address] Jay Metzger. Hemoglobin , hematocrit 20.4. I have spoken directly with Dr. Chauhan from night hospitalist service and discussed transfusion. He will apply 2 units PRBCs today. Touch toe weightbearing only on the left lower extremity using a front wheeled walker. Continue formal physical therapy for mobility, gait and safety. Continue by mouth pain medication as needed. DVT prophylaxis per hospitalist. Orthopedics has started patient on Lovenox but this may be changed at hospitalist discretion. I have spoken with a pharmacist today and discussed the fact the patient remains on Lovenox when he had been on warfarin prior to surgery. Pharmacist has agreed to bring this up in rounds and talk to patient's current hospitalist regarding transition back to his chronic warfarin if this is determined to be the appropriate course by pharmacy and internal medicine. Postoperative dressings clean dry and intact morning. Collazo is absent. Bilateral SCDs in place. CLAY hose on left lower extremity only. Abduction wedge absent Nursing please fit bilateral thigh-high CLAY hose which are ordered 07-10-16. Follow-up in 2 weeks at [facility] orthopedic clinic with mid-level provider for suture removal and wound check. AP pelvis and left crosstable lateral hip x -rays on arrival. Follow-up in 6 weeks at [facility] orthopedic clinic with Dr. Jay Metzger with left two-view hip x-rays on arrival. Orthopedics thanks hospitalist service for their help in the medical management of this patient. Orthopedics will sign off on this patient at this time but as always we will remain available for consultation or treatment regarding orthopedic issues. Anticipate discharge to correction facility by hospitalist service on postop day #3 or when determined to be medically appropriate for discharge per hospitalist service. VTE Prophylaxis: Sub-Q Enoxaparin (Lovenox 40 mg subcutaneous daily for DVT prophylaxis), Ute, CLAY Jacobsen, Walker Rodriguez PA-C Jul 12, 2016 06:58
[2016-07-12] MEDS: Insulin LISPRO 300 Unit/3 mL Inj SUBQ SCH ×4 (07:49→22:00)
[2016-07-12] MEDS: Senna-Docusate 8.6-50 mg Tablet PO SCH ×2 (09:02→21:57)
[2016-07-12] MEDS: Lidocaine Topical 5% Patch TOPICAL SCH (09:03)
--- NOTE | 2016-07-12 10:08 | PCM.PNMED ---
Subjective Date of Service Jul 12, 2016 Subjective BP was running low so BP meds were held, 500cc bolus given responded well, normotensive this AM hgb trending down to 6.2 this AM> no episode of GIB, no signs of hematoma on surgical site. held LMWH this AM, 2units of pRBC ordered Exam Vital Signs Vital Sign - Last Date Time Temp Pulse Resp B/P Pulse Ox O2 Delivery O2 Flow Rate FiO2 07/12/16 06:21 80 07/12/16 05:09 36.8 16 124/60 94 Room Air 07/09/16 23:48 2.00 Intake and Output 07/11/16 07/11/16 07/12/16 Cumulative From/Thru 15:00 23:00 07:00 07/08/16 15:18 - 07/12/16 06:36 Intake Total 560 ml 769 ml 7107 ml Output Total 1492 ml Balance 560 ml 769 ml 5615 ml Intake Oral 458 ml 250 ml 2364 ml IV Total 102 ml 519 ml 4743 ml Output Urine Total 1342 ml Estimated Blood Loss 150 ml # Voids 2 2 8 # Bowel Movements 2 3 Exam NAD, comfortably laying down on the bed no JVD, MMM, no LAD RRR, nl s1, s2 no mrg CTAB, no w,c S,ND,NT,normoactive BS+ warm, no edema, pulses 2/2 bilaterally, moves toes, sensory intact Lt hip, sterilely dressed IVs and Medications Medications Reviewed: Medications were reviewed in detail Lab and Diagnostics Result Diagram: 07/12/1644207/12/16442 X-Rays, CTs and MRIs ROCEDURE: CT HIP LEFT W/O CONTRAST ([id number]) INDICATIONS: STABBING PAIN TO LEFT HIP TECHNIQUE: Noncontrast 3 mm axial sections acquired through the bony pelvis. Additional 3 mm axial sections acquired through the symptomatic hip joint, with coronal and sagittal reformats. COMPARISON: None. FINDINGS: Image quality: Excellent. Bones: Bones are osteoporotic. There is a subacute left femoral neck fracture with angulation and displacement deformity. There is mild cortical deformity in the medial aspect of the inferior ramus of the left ischium on axial imaging, series 2/image 64, suggesting nondisplaced obturator ring fracture. Soft tissues: Fat filled bilateral inguinal hernias. IMPRESSION: Subacute fracture left femoral neck. Possible left obturator ring fracture, nondisplaced. Note: Findings called to Dr. Mango Murray at 1445 hrs. on 07/08/2016. Patient transferred to the ED by shadi at his request. Dictated by: Benjamin Alcala M.D. on 07/08/2016 at 14:38 Approved by: Benjamin Alcala M.D. on 07/08/2016 at 14:55 Assessment & Plan 85-year-old malen with history of DM type II, CVA, HTN, hyperlipidemia, a-fib on Coumadin, CAD, JULES, and osteoarthritis p/w hip pain. acute, active Lt hip pain s/p fall, POA, CT of hip showed subacute subacute fracture left femoral neck. Possible left obturator ring fracture, nondisplaced. underwent surgery L TOTAL HIP LAWRENCE ARTHROPLASTY 07/09/16, no Cx observed. -appreciate orthopedics post management, pain/dvt ppx -pain control with dilaudid, -zofran for n/v -PT Coronary artery disease, with history of ND in 1993 and NSTEMI in 11/17, no active cardiac condition to postpone the surgery, pre-op assessment-CXR showed mild pulmonary edema, but clinically pt seems euvolemic, maintain oxygenation w/ o O2 supplement, no s/s of acute CHF, no active chest pain, EKG showed normal sinus, no high degree blocks. -no periop cardiac event, -replete K>4, Mg>2, Afib, likely proxysmal, INR in normal range, pt is not Coumadin, held aspirin periop, developed 10beats of NSVT on telemetry 07/11 -continue on telemetry -continue to hold for now given anemia. mild hypoxia likely due to probable post op mild atelectasis, encouraged use Incentive spirometer, techniques reviewed at the bedside. acute blood lose anemia, developed postop, h/h gradually trended down, no signs of active bleeding, -transfuse 2units, trend h/h q12h, require slow transfusion, may need lasix hypotensive episode, developed postop, likely medicine induced, possible blood volume loss, hold home BP meds except metoprolol switched to12.5mg bid, hold if BP<100, HR<60. no signs of ATN, BP resumed normal overnight. 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 Osteoarthritis, spine. History of psoriasis, previously on Barb. Iron deficiency anemia, chronic. Bladder diverticulum with hematuria, s/p surgical repair. BPH. Vertebral artery stenosis, left. Internal carotid artery stenosis. US 11/17 : 50-75% LICA, 50% NATALEE Colon polyps. dispo:likely 1-2more days until h/h more stable, diet:cardiac/diabetic dvt ppx:SCD, held LMWH today DNR/DNI, but okay for anesthesia for surgery VTE Prophylaxis: Sub-Q Enoxaparin (Lovenox 40 mg subcutaneous daily for DVT prophylaxis), SCDs, CLAY Barrientos VTE Mechanical Devices: Intermittant Pneumatic CD, Anti-Embolic stockings Time spent 35min Jillian Alex MD Jul 12, 2016 09:57
[2016-07-12] MEDS: 0.9% Sodium Chloride 250 ML IV SCH (10:14)
--- NOTE | 2016-07-12 13:21 | NUR ---
Attempted to see. Not appropriate due to low hemoglobin. Will revisit as able when condition improved. Kai Palomares, OTR/L
--- NOTE | 2016-07-12 14:55 | NUR ---
Transfusion: Pt temperature up to 99.7 between units. Physician notified and Tylenol ordered. Second unit to be started. Addendum: 07/12/16 at 1840 by PAUL JUSTICE RN temperature wnl after second unit of blood. Pt handled transfusion well. Eating well. UA obtained. NO blood in urine, but what appear to be scratches on penis with some blood showing in brief. Will continue to monitor.
--- NOTE | 2016-07-12 17:21 | DRSVH ---
PROCEDURE: X-RAY CHEST ONE VIEW, PORTABLE ([id number]) INDICATIONS: mild grade fever postop TECHNIQUE: One view of the chest was acquired. COMPARISON: [facility], CR, XR CHEST 1VW (PORTABLE), 07/08/2016, 15:55. FINDINGS: Surgical changes and devices: None. Lungs and pleura: No pleural effusions or pneumothorax. Retrocardiac consolidation is seen. Cannot e xclude small left pleural effusion. Increased mild patchy opacity in the left midlung otherwise, unch anged appearance since 07/08/16. Mediastinum: Mediastinal contours appear normal. Heart size is normal. Bones and chest wall: No suspicious bony lesions. Overlying soft tissues appear unremarkable. IMPRESSION: Left basilar consolidative opacity and possible small left pleural effusion as before. Interval mild increased patchy opacity in the left midlung. Please correlate clinically. Dictated by: Sudarshan Phillips M.D. on 07/12/2016 at 17:17 Approved by: Sudarshan Phillips M.D. on 07/12/2016 at 17:19
[2016-07-12 20:02] LABS: COLOR,URINE DARK YELLOW (YELLOW)
[2016-07-12 20:03] LABS: APPEARANCE,URINE CLOUDY (CLEAR,HAZY); OCCULT BLOOD,URINE LARGE (NEGATIVE); PH,URINE 5.5 (5.0-8.0); UROBILINOGEN,URINE NORMAL (NORMAL)
[2016-07-13] VITALS (7 sets, daily range): BP systolic 154–177; BP diastolic 4–73; PULSE 57–71; RESP 16–20; O2SAT 95–100
[2016-07-13] MEDS: Sodium Chloride LOK Flush 10 mL Syringe IV SCH ×2 (01:06→08:30)
[2016-07-13] MEDS: 0.9% Sodium Chloride 1,000 ML IV SCH (01:07)
[2016-07-13] MEDS: 0.9% Sodium Chloride 250 ML IV SCH (05:09)
--- NOTE | 2016-07-13 05:15 | NUR ---
Sleep / labs Pt able to sleep well with minimal pain. Repositioned frequently for skin care. Refused to allow lab to draw blood cultures in evening despite multiple efforts to convince him; will try again with am labs. Cooperative with all other care. Hourly rounding ongoing.
[2016-07-13 06:48] LABS: BASOPHILS % (AUTO) 0.2 % (0-3); EOSINOPHILS % (AUTO) 5.4 % (0-5); MONOCYTES % (AUTO) 4.7 % (4-12); Mean Corpuscular Hemoglobin 29.4 pg (27.0-35.0); Mean Corpuscular Volume 93.6 fL (81-100); NEUTROPHILS % (AUTO) 43.3 % (40-74); Platelet Count 77 bil/L (150-400)
[2016-07-13] MEDS: Insulin LISPRO 300 Unit/3 mL Inj SUBQ SCH (08:00)
[2016-07-13] MEDS: Senna-Docusate 8.6-50 mg Tablet PO SCH (08:30)
[2016-07-13] MEDS: Dextrose 5% 0.45% NaCl 1,000 ML IV SCH (08:40)
--- NOTE | 2016-07-13 09:04 | PCM.DIMED ---
Discharge Instructions Date of Service Jul 13, 2016 Dates of Hospitalization Jul 08, 2016 at 18:28 Discharge Diagnosis Discharge Diagnosis Lt hip pain due to subacute fracture left femoral neck s/p mechanical fall, L TOTAL HIP LAWRENCE ARTHROPLASTY 07/09/16 Diet Heart Healthy Activity No restrictions Patient Instructions You were hospitalized with hip fracture, underwent surgery on 07/09/16, you developed jaqui-operative complications as blood loss, atelectasis but recovered well. Please follow the instruction below. INSTRUCTION FROM ORTHOPEDIC SERVICE Touch toe weightbearing only on the left lower extremity using a front wheeled walker. Continue formal physical therapy for mobility, gait and safety. Continue by mouth pain medication as needed. DVT prophylaxis: patient was on LMWH then noted to have acute anemia w/o signs of active bleeding. patient received 2units of pRBC, h/h remained stable. Aspirin was held but resumed as h/h remained stable. Please consider restarting LMWH in acute post-op course for 30days, otherwise continue aspirin only(home wright) Postoperative dressings clean dry and intact morning. Collazo is absent. Bilateral SCDs in place. CLAY hose on left lower extremity only. Abduction wedge absent Nursing please fit bilateral thigh-high CLAY hose which are ordered 07-10-16. Follow-up in 2 weeks at [facility] orthopedic clinic with mid-level provider for suture removal and wound check. AP pelvis and left crosstable lateral hip x -rays on arrival. Follow-up in 6 weeks at [facility] orthopedic clinic with Dr. Jay Metzger with left two-view hip x-rays on arrival. Orthopedics thanks hospitalist service for their help in the medical management of this patient. Orthopedics will sign off on this patient at this time but as always we will remain available for consultation or treatment regarding orthopedic issues. Anticipate discharge to senior living facility by hospitalist service on postop day #3 or when determined to be medically appropriate for discharge per hospitalist service. Follow-up plan Please follow up with and your primary doctor Follow-up Provider: Jay Metzger DO Follow-up with PCP in: 2 weeks Jillian Alex MD Jul 13, 2016 09:04
[2016-07-13] MEDS: Lidocaine Topical 5% Patch TOPICAL SCH (10:03)
--- NOTE | 2016-07-13 11:20 | NUR ---
Social Work- Discharge Data: EMR reviewed. Pt is on day 5 of hospitalization for hip fracture per H&P. Pt to discharge today. Pt is POD 4. LAM spoke with Daisy regarding pt's discharge, agreeable to accepting pt today. LAM created packet and faxed orders. LAM set up BLS transport for 1400. LAM spoke with pt at bedside, explained that although we have reviewed pt's eligibility for BLS transport, we cannot guarantee insurance will cover it in full. Pt agreeable to this. Pt to discharge to [facility] via S at 1400 with MD Lizama to follow. KAYY, RN, pt/family, and Daisy all updated and agreeable to plan. Assessment: Pt who would benefit from SNF. Plan: Pt to discharge to [facility] via BLS at 1400 with MD Lizama to follow. KAYY, RN, pt/family, and Daisy all updated and agreeable to plan. LADI Baptiste
--- NOTE | 2016-07-13 15:49 | NUR ---
Transfer patient transferred to [facility] for further rehab care. Patient transferred BLS . Pt unable to tolerate sitting up in w/c or bedside chair at this time. Patient alert ,forgetful and angry at times. Pt with left hip dressing dry and intact. Facility called for report and stated they will call back if any questions. Daughter called and message left regarding discharge.
--- NOTE | 2016-07-14 22:36 | PCM.DC.MED ---
Discharge Summary Date of Service Jul 13, 2016 Dates of Hospitalization Date of Hospital Admission Jul 08, 2016 at 18:28 Date of Discharge: Jul 13, 2016 Providers: Admitting Physician: Jillian Alex MD Primary Care Physician: Jaycob Peterson MD Attending Physician: Jillian Alex MD Diagnosis at Time of Discharge Diagnosis at Time of Discharge Acute Lt hip pain due to subacute fracture left femoral neck s/p mechanical fall, L TOTAL HIP LAWRENCE ARTHROPLASTY 07/09/16 jaqui-operative acute blood lose anemia, atelectasis, hypotensive episode chronic Coronary artery disease, with history of DC in 1993 and NSTEMI in 11/17, Afib, Diabetes mellitus, type 2, 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 cell lymphoma, diagnosed 06/15, finished 4 cycles of Rituxan, Obstructive sleep apnea, non-compliant with CPAP. Osteoarthritis, spine. History of psoriasis, previously on Barb. Iron deficiency anemia, chronic. Bladder diverticulum with hematuria, s/p surgical repair. BPH. Vertebral artery stenosis, left. Internal carotid artery stenosis. US 11/17 : 50-75% LICA, 50% NATALEE Colon polyps. Consultations orthopedic Procedures XRay, CTs & MRIs ROCEDURE: CT HIP LEFT W/O CONTRAST ([id number]) INDICATIONS: STABBING PAIN TO LEFT HIP TECHNIQUE: Noncontrast 3 mm axial sections acquired through the bony pelvis. Additional 3 mm axial sections acquired through the symptomatic hip joint, with coronal and sagittal reformats. COMPARISON: None. FINDINGS: Image quality: Excellent. Bones: Bones are osteoporotic. There is a subacute left femoral neck fracture with angulation and displacement deformity. There is mild cortical deformity in the medial aspect of the inferior ramus of the left ischium on axial imaging, series 2/image 64, suggesting nondisplaced obturator ring fracture. Soft tissues: Fat filled bilateral inguinal hernias. IMPRESSION: Subacute fracture left femoral neck. Possible left obturator ring fracture, nondisplaced. Note: Findings called to Dr. Mango Murray at 1445 hrs. on 07/08/2016. Patient transferred to the ED by shadi at his request. Dictated by: Benjamin Alcala M.D. on 07/08/2016 at 14:38 Approved by: Benjamin Alcala M.D. on 07/08/2016 at 14:55 Brief History HPI obtained on 07/08 85-year-old malen with history of DM type II, CVA, HTN, hyperlipidemia, a-fib on Coumadin, CAD, JULES, and osteoarthritis p/w hip pain. Pt stated that he fell 3 weeks ago in the bathroom, slipped and fell backwards, since the he started having lt hip pain, but CXR was negative for fracture. Patient fel 2days ago again when his WC gave out when he was trying to sit, fell backward again. denied head trauma, LOC, pain in other body parts. Pt was brought in today for scheduled CT scan. then with positive CT findings with L femoral head fracture head, pt was brought to ED. In ED, VS stable, [id number], tg to 52-54, afebrile, >95% on RA. Received multiple dilaudid, zofran. During the interview in [facility], pt denied pain, looked comfortable, ROS: pt denied fever, chills, n/v/c/d, no PND/orthopnea, Prior to this episode, used to walk 5-6blocks without assistance, didn't experience CP or SOB with movement. pt stated that he had mild heart attack several years ago, but since then, hasn't had any chest pain, currently denied active chest pain, sob. denied leg swelling, wt gain, increase in abdominal girdle. 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 Hospital Course 85-year-old malen with history of DM type II, CVA, HTN, hyperlipidemia, a-fib on Coumadin, CAD, JULES, and osteoarthritis p/w hip pain. acute Lt hip pain s/p fall, POA, CT of hip showed subacute subacute fracture left femoral neck. Possible left obturator ring fracture, nondisplaced. underwent surgery L TOTAL HIP LAWRENCE ARTHROPLASTY 07/09/16, no Cx observed. Coronary artery disease, with history of DC in 1993 and NSTEMI in 11/17, no active cardiac condition to postpone the surgery, pre-op assessment-CXR showed mild pulmonary edema, but clinically pt seems euvolemic, maintain oxygenation w/ o O2 supplement, no s/s of acute CHF, no active chest pain, EKG showed normal sinus, no high degree blocks. no periop cardiac complicated developed -replete K>4, Mg>2, Afib, likely proxysmal, INR in normal range, pt is not Coumadin, held aspirin periop, developed 10beats of NSVT on telemetry 07/11, but remained stable throughout with repletion of K,Mg. mild hypoxia likely due to probable post op mild atelectasis, patient developed this condition postoperatively, had mild temperature intermittently. CXR showed possible atelectasis vs PNA. Patient remained clinically stable without abx, maintained O2 sat on room air. acute blood lose anemia, developed postop, h/h gradually trended down, received 2units post-operatively, no signs of active bleeding observed throughout. hypotensive episode, developed postop, likely medicine induced, possible blood volume loss. BP meds were held briefly, but subsequently,BP was normalized with home meds being resumed. 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 Osteoarthritis, spine. History of psoriasis, previously on Barb. Iron deficiency anemia, chronic. Bladder diverticulum with hematuria, s/p surgical repair. BPH. Vertebral artery stenosis, left. Internal carotid artery stenosis. US 11/17 : 50-75% LICA, 50% NATALEE Colon polyps. Exam Vital Signs (Last) Date Time Temp Pulse Resp B/P Pulse Ox O2 Delivery O2 Flow Rate FiO2 07/13/16 09:18 61 07/13/16 09:05 16 99 Room Air 07/13/16 08:58 36.8 158/53 07/09/16 23:48 2.00 Exam NAD, comfortably laying down on the bed no JVD, MMM, no LAD RRR, nl s1, s2 no mrg CTAB, no w,c S,ND,NT,normoactive BS+ warm, no edema, pulses 2/2 bilaterally, moves toes, sensory intact Lt hip, sterilely dressed Test 07/08/16 16:37 07/08/16 16:46 07/09/16 04:43 07/12/16 04:43 Hold Urine Received (Received) Urinalysis Comment None Prothrombin Time 11.2sec (8.1-12.5) Prothromb Time International Ratio 1.05ratio Pro-B-Type Natriuretic Peptide 703.1pg/mL (0-486) Band Neutrophils % 0% (1-5) Test 07/12/16 18:40 07/13/16 06:10 Urine Color Dark yellow (YELLOW) Urine Appearance Cloudy (CLEAR,HAZY) Urine pH 5.5 (5.0-8.0) Urine Specific [place] 1.025 (1.003-1.035) Urine Protein 30mg/dL (NEG,TRACE) Urine Glucose (UA) Negativemg/dL (NEGATIVE) Urine Ketones Negativemg/dL (NEGATIVE) Urine Occult Blood Large (NEGATIVE) Urine Nitrite Negative (NEGATIVE) Urine Bilirubin Negative (NEGATIVE) Urine Urobilinogen Normalmg/dL (NORMAL) Urine Leukocyte Esterase Small (NEGATIVE) Urine RBC Packed/hpf (0-2) Urine WBC 11-50/hpf (0-5) Urine Epithelial Cells Few/hpf (NONE-MOD) Urine Crystals None seen (NONE SEEN) Urine Bacteria None/hpf (NONE-FEW) Urine Hyaline Casts None/lpf (NONE) Urine Granular Casts None seen (NONE SEEN) Urine Waxy Casts None seen (NONE SEEN) Urine Red Blood Cell Casts None seen (NONE SEEN) Urine White Blood Cell Casts None seen (NONE SEEN) Urine Mucus None seen (None Seen) Urine Trichomonas None seen (NONE SEEN) Urine Yeast None (NONE SEEN) Urine Culture Reflexed Indicated White Blood Count 4.5th/mm3 (3.8-10.1) Red Blood Count 2.82mil/mm3 (4.40-5.80) Hemoglobin 8.3g/dL (13.8-17.2) Hematocrit 26.4% (41.0-50.0) Mean Corpuscular Volume 93.6fL (81-100) Mean Corpuscular Hemoglobin 29.4pg (27.0-35.0) Mean Corpuscular Hemoglobin Concent 31.4% (32.0-37.0) Red Cell Distribution Width 16.7% (12.3-15.4) Platelet Count 77bil/L (150-400) Neutrophils (%) (Auto) 43.3% (40-74) Lymphocytes (%) (Auto) 46.4% (14-46) Monocytes (%) (Auto) 4.7% (4-12) Eosinophils (%) (Auto) 5.4% (0-5) Basophils (%) (Auto) 0.2% (0-3) Sodium Level 142mEq/L (134-144) Potassium Level 4.6mEq/L (3.5-5.2) Chloride Level 105mEq/L (97-108) Carbon Dioxide Level 24mmol/L (18-29) Blood Urea Nitrogen 20mg/dL (8-27) Creatinine 0.44mg/dL (0.76-1.27) Estimat Glomerular Filtration Rate 195mL/min (>59) Glucose Level 98mg/dL (60-99) Calcium Level 7.8mg/dL (8.5-10.1) Phosphorus Level 3.0mg/dL (2.5-4.9) Magnesium Level 2.0mg/dL (1.6-2.6) Total Bilirubin 0.5mg/dL (0.0-1.2) Aspartate Amino Transf (AST/SGOT) 31U/L (0-50) Alanine Aminotransferase (ALT/SGPT) 8U/L (0-44) Alkaline Phosphatase 37U/L (25-160) Total Protein 4.1g/dL (6.4-8.4) Albumin 1.9g/dL (3.4-5.0) Discharge Medications Discharge Medications Amlodipine (Amlodipine) 5 Mg Tablet 5 MG PO BID (Reported) Aspirin (Aspirin) 325 Mg Tablet 325 MG PO DAILY (Reported) Donepezil (Donepezil) 10 Mg Tablet 10 MG PO DAILY (Reported) Glipizide ER (Glipizide ER) 2.5 Mg Tab.er.24 2.5 MG PO DAILY (Reported) Ipratropium/Albuterol Sulfate (Iprat-Albut 0.5-3(2.5) mg/3 mL Inhalant Soln) 3 Ml Ampul.neb 3 ML IH TID (Reported) Lact Cmb2/S.thermophl/Bif Cmb1 (Vsl#3 Packet) 1 Each Packet 1 EACH PO DAILY ( Reported) Lidocaine (Lidoderm) 700 Mg Adh..patch 1 PATCH TP daily,[id number] 12 (Reported ) Lisinopril (Lisinopril) 10 Mg Tablet 10 MG PO DAILY (Reported) Melatonin/Pyridoxine (Melatonin 3 mg Tablet) 1 Each Tablet 1 EACH PO HS ( Reported) Metoprolol Tartrate (Metoprolol Tartrate) 25 Mg Tablet 25 MG PO TID (Reported) Mirtazapine (Mirtazapine) 30 Mg Tablet 30 MG PO HS (Reported) Nicotine (Nicoderm Cq 21 mg/24 hr) 1 Each Patch.td24 1 EACH TD DAILY (Reported) As needed Acetaminophen (Acetaminophen) 325 Mg Tablet 325-650 MG PO Q4H PRN PRN For Pain ( Reported) Bisacodyl (Dulcolax Rectal) 10 Mg Supp.rect 10 MG RC DAILY PRN PRN For Constipation (Reported) Hydrocodone-Acetaminophen 5-325 mg (Hydrocodone-Acetaminophen 5-325 mg) 1 Each Tablet 1 TABLET PO Q4H PRN PRN For Pain Prescribed by: JAYDEN BAUGH DO Magnesium Hydroxide (Milk of Magnesia) 400 Mg/5 Ml Oral.susp 30 ML PO DAILY PRN PRN For Constipation (Reported) Na Phos,M-B/Na Phos,Di-Ba (Fleet Enema) 133 Ml Enema 133 ML RC DAILY PRN PRN For Constipation (Reported) Sennosides (Senna) 8.6 Mg Tablet 17.2 MG PO HS PRN PRN For Constipation ( Reported) Followup Plan Disposition: home Follow-up plan Please follow up with and your primary doctor Discharge Diet: Heart Healthy Discharge Activity: No restrictions Patient Instructions You were hospitalized with hip fracture, underwent surgery on 07/09/16, you developed jaqui-operative complications as blood loss, atelectasis but recovered well. Please follow the instruction below. INSTRUCTION FROM ORTHOPEDIC SERVICE Touch toe weightbearing only on the left lower extremity using a front wheeled walker. Continue formal physical therapy for mobility, gait and safety. Continue by mouth pain medication as needed. DVT prophylaxis: patient was on LMWH then noted to have acute anemia w/o signs of active bleeding. patient received 2units of pRBC, h/h remained stable. Aspirin was held but resumed as h/h remained stable. Please consider restarting LMWH in acute post-op course for 30days, otherwise continue aspirin only(home wright) Postoperative dressings clean dry and intact morning. Collazo is absent. Bilateral SCDs in place. CLAY hose on left lower extremity only. Abduction wedge absent Nursing please fit bilateral thigh-high CLAY hose which are ordered 07-10-16. Follow-up in 2 weeks at [facility] orthopedic clinic with mid-level provider for suture removal and wound check. AP pelvis and left crosstable lateral hip x -rays on arrival. Follow-up in 6 weeks at [facility] orthopedic clinic with Dr. Jay Metzger with left two-view hip x-rays on arrival. Orthopedics thanks hospitalist service for their help in the medical management of this patient. Orthopedics will sign off on this patient at this time but as always we will remain available for consultation or treatment regarding orthopedic issues. Anticipate discharge to long term facility by hospitalist service on postop day #3 or when determined to be medically appropriate for discharge per hospitalist service. Follow-up Provider: Jay Metzger DO Follow-up with PCP in: 2 weeks Time spent 65min Jillian Alex MD Jul 13, 2016 13:59
== END 2016-07-13 14:05 | DRG 470 ==
LOC: SED 15:15 → OBSVTOIN 18:28 → OSC 18:28
PROVIDERS: ADMIT Internal Medicine; ATTEND Internal Medicine
PROC: 0SRS0JA Replacement of Left Hip Joint, Femoral Surface with Synthetic Substitute, Uncemented, Open Approach (ICD-10-PCS; principal; 2016-07-09 16:30)
PROC: 30233N1 Transfusion of Nonautologous Red Blood Cells into Peripheral Vein, Percutaneous Approach (ICD-10-PCS; 2016-07-12)
DX: S72.002A Fracture of unspecified part of neck of left femur, initial encounter for closed fracture (principal); D62 Acute posthemorrhagic anemia; I48.0 Paroxysmal atrial fibrillation; E11.9 Type 2 diabetes mellitus without complications; I10 Essential (primary) hypertension; E78.5 Hyperlipidemia, unspecified; Z79.01 Long term (current) use of anticoagulants; I25.10 Atherosclerotic heart disease of native coronary artery without angina pectoris